=== PATIENT | male | born 1980 | race Caucasian/White ===

== ENCOUNTER → 2016-10-12 | Outpatient (REF) | payer OTHER ==
[~2016-10-12] MED LIST: CELE40TA PO; IBUP800T23 PO; NORCOTAB PO; SOMA350T PO; TIZA4CAP3 PO; TRAM50TA2 PO
[2016-10-12 11:48] LABS: MEAN CORPUSCULAR HEMOGLOBIN 28.4 pg (27.0-33.0); MEAN CORPUSCULAR HGB CONC 33.4 g/dl (32.0-36.5); MEAN CORPUSCULAR VOLUME 84.9 fl (80.0-96.0); RED CELL DISTRIBUTION WIDTH 15.2 % (11.5-14.5); WHITE BLOOD COUNT 7.4 K/mm3 (4.0-10.0)
[2016-10-12 11:52] LABS: ALBUMIN 4.3 GM/DL (3.2-5.2); ALBUMIN/GLOBULIN RATIO 1.34 (1.00-1.93); ALKALINE PHOSPHATASE 60 U/L (45-117); ALT/SGPT 36 U/L (12-78); ANION GAP 11 MEQ/L (8-16); AST/SGOT 19 U/L (15-37); BILIRUBIN,TOTAL 0.5 MG/DL (0.2-1.0); BLOOD UREA NITROGEN 19 MG/DL (7-18); CALCIUM LEVEL 9.2 MG/DL (8.5-10.1); CARBON DIOXIDE LEVEL 26 MEQ/L (21-32); CHLORIDE LEVEL 101 MEQ/L (98-107); CHOLESTEROL LEVEL 205 MG/DL (<200); CREATININE FOR GFR 0.84 MG/DL (0.70-1.30); GLOMERULAR FILTRATION RATE > 60.0 (>60); GLUCOSE, FASTING 88 MG/DL (70-105); POTASSIUM SERUM 4.1 MEQ/L (3.5-5.1); SODIUM LEVEL 138 MEQ/L (136-145); TOTAL PROTEIN 7.5 GM/DL (6.4-8.2); TRIGLYCERIDES LEVEL 359 MG/DL (<150)
== END ==
LOC: M SFHCPLAZ 09:03
PROVIDERS: ATTEND Nurse Practitioner Adult Health
DX: E78.00 Pure hypercholesterolemia, unspecified (principal)

== ENCOUNTER → 2016-10-29 | Outpatient (CLI) | payer OTHER ==
--- NOTE | 2016-10-29 12:56 | REP ---
Cervical spine series: Eight views. History: Cervical discectomy. Comparison radiographs May 30, 2015. Findings: The patient is status post ventral discectomy and fusion across this C5-6 disc level. Ventral perfusion plate and intervertebral disc spacers seen in position, unchanged. No subluxation or instability is seen. Oblique views demonstrate intact neural foramina bilaterally at each cervical level and normally aligned facets. AP and open mouth odontoid views show no additional abnormality. Impression: Status post ventral discectomy and fusion across the C5-6 disc level. Findings unchanged from comparison study May 30, 2015. Signed by Matt Etienne MD 10/29/2016 07:25 P
== END ==
LOC: M WUC 11:16
PROVIDERS: ATTEND Nurse Practitioner Adult Health
DX: Z98.890 Other specified postprocedural states (principal)

== ENCOUNTER → 2016-11-26 | Outpatient (REF) | payer OTHER | LOC: M LAB REF 16:15 | PROVIDERS: ATTEND Physician Assistant | DX: J02.9 Acute pharyngitis, unspecified (principal) ==

== ENCOUNTER 2016-12-06 10:26 | Emergency (ER) | payer OTHER ==
[~2016-12-06] VITALS: Ht 165.1 cm; Wt 88.5 kg
[2016-12-06] MEDS ORDERED: TRAM50TA2 PO (11:05)
--- NOTE | 2016-12-06 13:16 | REP ---
Right knee series: Five views. History: Bony tenderness. No injury. Findings: Five views of the right knee demonstrate normal bones, joints, and soft tissues. No fracture, subluxation or joint effusion is evident. Impression: Negative right knee radiographs. Signed by Matt Etienne MD 12/06/2016 07:16 P
[2016-12-06] MEDS ORDERED: MOBI7.5T10 PO (14:26)
[2016-12-06 15:10] VITALS: BP 143/90
== END 2016-12-06 15:14 | disposition home or self-care (01) ==
LOC: M ED 11:54
DX: S83.91XA Sprain of unspecified site of right knee, initial encounter (principal); X58.XXXA Exposure to other specified factors, initial encounter; Y92.89 Other specified places as the place of occurrence of the external cause; Y93.89 Activity, other specified; Y99.8 Other external cause status; F41.9 Anxiety disorder, unspecified; Z87.891 Personal history of nicotine dependence; Z88.8 Allergy status to other drugs, medicaments and biological substances; Z79.899 Other long term (current) drug therapy

== ENCOUNTER → 2017-06-21 | Outpatient (REF) | payer OTHER ==
[~2017-06-21] MED LIST changes: +IBUP1TAB7 PO; -IBUP800T23 PO; +MOBI4TAB PO
[2017-06-21 13:58] LABS: CHOLESTEROL LEVEL 224 MG/DL (<200); TRIGLYCERIDES LEVEL 410 MG/DL (<150)
[2017-06-23 00:07] LABS: Lyme Disease IgG/IgM Antibodie <0.91 ISR (0.00-0.90); Lyme Disease IgM Ab Quantitati <0.80 index (0.00-0.79)
== END ==
LOC: M SFHCPLAZ 11:44
PROVIDERS: ATTEND Internal Medicine
DX: E78.00 Pure hypercholesterolemia, unspecified (principal); M25.561 Pain in right knee; M25.562 Pain in left knee

== ENCOUNTER → 2017-09-06 | Outpatient (CLI) | payer OTHER ==
--- NOTE | 2017-09-06 20:12 | REP ---
MRI LUMBAR SPINE WITHOUT CONTRAST: 09/06/2017. Clinical history: Back pain, lumbar disc degeneration, pain radiating down into the knees. Technique: Sagittal T1, T2, STIR images with axial T1 and T2 sequences provided. Findings. The normal lumbar lordosis is reduced. Vertebral body heights and marrow signal grossly intact. There is loss of disc space height and water signal to a mild degree at L4-5, greater L5-S1. Disc levels above maintain height and water signal through T12-L1. Conus terminates at T12-L1. T11-12 and T12-L1 show no disc space narrowing, herniation, spinal or foraminal stenosis. At L1-2, there is minimal right paracentral disc bulge without central canal stenosis. The foramina are adequate. At L2-3, there is no disc bulge herniation and no spinal or foraminal stenosis. At L3-L4, there is a mild broad-based disc bulge flattening ventral thecal sac. There is ligamentum flavum and mild facet hypertrophy. AP canal diameter only minimally decreased at 9.3 mm. No nerve root compression in the foramen or central canal. At L4-5, mild broad-based disc bulge flattening ventral thecal sac. Ligamentum flavum and facet hypertrophy. Mild central canal stenosis. The AP canal diameter almost 9 mm. No nerve root compression in the central canal. The foramina show loss of perineural fat without definite nerve root compression. At L5-S1, mild broad-based disc bulge abutting the left and right S1 nerve roots in the central canal. Cross-sectional area of the central canal mildly diminished. The foramina show only mild loss of perineural fat and no nerve root compression within. Impression: Multilevel mild degenerative disc change with some disc bulges at L3-4 through L5-S1 without central canal significant stenosis. There is ligamentum and facet hypertrophy and AP canal diameters of 9 mm at the L3-4 and L4-5 noted without foraminal encroachment or nerve root compression at any level. No compression fractures, destructive lesions or other acute finding. Signed by Josh Chacon MD 09/07/2017 09:11 A
== END ==
LOC: M RAD 16:55
PROVIDERS: ATTEND Physician Assistant
DX: M51.36 Other intervertebral disc degeneration, lumbar region (principal)

== ENCOUNTER 2018-01-31 07:49 | Day surgery (SDC) | payer OTHER ==
[2018-01-31] MEDS ORDERED: PROPOFOL 200 MG/20 ML VIAL As Ordered (07:52)
[2018-01-31] MEDS ORDERED: LIDOCAINE 2% INJ 100 MG/5 ML SDV (FOR ANES.) As Ordered (07:52)
[2018-01-31] MEDS: LR 1,000 ML IV (08:00)
== END 2018-01-31 10:06 | disposition home or self-care (01) ==
LOC: M OPP 07:49
DX: K62.5 Hemorrhage of anus and rectum (principal); K64.8 Other hemorrhoids; R19.7 Diarrhea, unspecified; E78.5 Hyperlipidemia, unspecified; M54.2 Cervicalgia; M54.89 Other dorsalgia; E66.9 Obesity, unspecified; F32.9 Major depressive disorder, single episode, unspecified; F41.9 Anxiety disorder, unspecified; R51 Headache; G47.30 Sleep apnea, unspecified; J45.909 Unspecified asthma, uncomplicated; Z88.8 Allergy status to other drugs, medicaments and biological substances; Z79.899 Other long term (current) drug therapy
CPT/HCPCS: 45378

== ENCOUNTER 2018-02-20 13:05 | Emergency (ER) | payer OTHER ==
[2018-02-20] MEDS: ACYCLOVIR 1,000 MG in D5W 250 ML IV (16:06)
[2018-02-20] MEDS: predniSONE 20 MG TAB PO (16:07)
[2018-02-20] MEDS: CIPRODEX OTIC SUSP 7.5ML AD (16:07)
== END 2018-02-20 17:28 | disposition home or self-care (01) ==
LOC: M ED 13:05
DX: B00.1 Herpesviral vesicular dermatitis (principal); F41.9 Anxiety disorder, unspecified; G47.33 Obstructive sleep apnea (adult) (pediatric); Z88.8 Allergy status to other drugs, medicaments and biological substances; Z79.899 Other long term (current) drug therapy
CPT/HCPCS: J0133

== ENCOUNTER → 2018-03-14 | Outpatient (REF) | payer OTHER ==
[2018-03-14 13:24] LABS: HEMATOCRIT 45.5 % (42.0-52.0); HEMOGLOBIN 16.2 g/dl (13.5-17.5); MEAN CORPUSCULAR HEMOGLOBIN 29.8 pg (27.0-33.0); MEAN CORPUSCULAR HGB CONC 35.6 g/dl (32.0-36.5); MEAN CORPUSCULAR VOLUME 83.6 fl (80.0-96.0); PLATELET COUNT, AUTOMATED 221 10^3/uL (150-450); RED BLOOD COUNT 5.44 10^6/uL (4.30-6.10); RED CELL DISTRIBUTION WIDTH 13.8 % (11.5-14.5); WHITE BLOOD COUNT 6.1 10^3/uL (4.0-10.0)
[2018-03-14 14:26] LABS: ALBUMIN 4.3 GM/DL (3.2-5.2); ALBUMIN/GLOBULIN RATIO 1.23 (1.00-1.93); ALKALINE PHOSPHATASE 57 U/L (45-117); ALT/SGPT 56 U/L (12-78); ANION GAP 11 MEQ/L (8-16); AST/SGOT 27 U/L (7-37); BILIRUBIN,TOTAL 0.6 MG/DL (0.2-1.0); BLOOD UREA NITROGEN 23 MG/DL (7-18); CALCIUM LEVEL 9.3 MG/DL (8.5-10.1); CARBON DIOXIDE LEVEL 25 MEQ/L (21-32); CHLORIDE LEVEL 103 MEQ/L (98-107); CHOLESTEROL LEVEL 277 MG/DL (<200); CHOLESTEROL RISK RATIO 6.441 (<5); CREATININE FOR GFR 0.92 MG/DL (0.70-1.30); GLOMERULAR FILTRATION RATE > 60.0 (>60); GLUCOSE, FASTING 95 MG/DL (70-100); HDL CHOLESTEROL 43 MG/DL (>40); NON-HDL-C 234 MG/DL; POTASSIUM SERUM 4.4 MEQ/L (3.5-5.1); SODIUM LEVEL 139 MEQ/L (136-145); TOTAL PROTEIN 7.8 GM/DL (6.4-8.2); TRIGLYCERIDES LEVEL 453 MG/DL (<150)
== END ==
LOC: M SFHCPLAZ 10:57
DX: G47.33 Obstructive sleep apnea (adult) (pediatric) (principal); E78.00 Pure hypercholesterolemia, unspecified

== ENCOUNTER 2019-08-10 11:25 | Emergency (ER) | payer OTHER ==
[~2019-08-10] VITALS: Ht 167.6 cm; Wt 88.6 kg
[~2019-08-10 11:25] MED LIST changes: +CIPRODEX AD; +HYDR-3715 PO; -NORCOTAB PO; +PRED20TA PO; +TIZA4CAP; +TIZA4CAP PO; -TIZA4CAP3 PO; +VALA1TAB2 PO
[2019-08-10] MEDS ORDERED: ABRE10CR TOP (13:30)
[2019-08-10] MEDS ORDERED: ACYCLOVIR 1,000 MG in D5W 250 ML IV ONE (15:15)
[2019-08-10 15:24] LABS: BASO # 0.1 10^3/uL (0.0-0.2); BASO % 0.8 % (0.0-1.0); EOS # 0.1 10^3/uL (0.0-0.5); EOS % 1.3 % (0.0-3.0); HEMATOCRIT 51.4 % (42.0-52.0); HEMOGLOBIN 17.3 g/dl (13.5-17.5); LYMPH # 3.3 10^3/uL (1.5-5.0); LYMPH % 41.4 % (24.0-44.0); MEAN CORPUSCULAR HGB CONC 33.7 g/dl (32.0-36.5); MEAN CORPUSCULAR VOLUME 86.2 fl (80.0-96.0); MONO # 0.9 10^3/uL (0.0-0.8); MONO % 10.7 % (0.0-5.0); NEUTROPHILS # 3.6 10^3/uL (1.5-8.5); NEUTROPHILS % 45.3 % (36.0-66.0); PLATELET COUNT, AUTOMATED 230 10^3/uL (150-450); RED BLOOD COUNT 5.96 10^6/uL (4.30-6.10)
[2019-08-10 15:48] LABS: BLOOD UREA NITROGEN 16 MG/DL (7-18); CALCIUM LEVEL 9.4 MG/DL (8.5-10.1); CARBON DIOXIDE LEVEL 29 MEQ/L (21-32); CHLORIDE LEVEL 104 MEQ/L (98-107); GLOMERULAR FILTRATION RATE > 60.0 (>60); GLUCOSE, FASTING 93 MG/DL (70-100); POTASSIUM SERUM 4.2 MEQ/L (3.5-5.1); SODIUM LEVEL 140 MEQ/L (136-145)
[2019-08-10 16:01] VITALS: BP 150/90
[2019-08-10] MEDS ORDERED: KEFL500C17 PO (17:14)
== END 2019-08-10 17:22 | disposition home or self-care (01) ==
LOC: M ED 11:25
DX: B02.8 Zoster with other complications (principal); F41.9 Anxiety disorder, unspecified; E78.00 Pure hypercholesterolemia, unspecified; Z79.899 Other long term (current) drug therapy; Z88.8 Allergy status to other drugs, medicaments and biological substances
CPT/HCPCS: 80048; 85025; 96360; 99284; J0133

== ENCOUNTER 2019-09-09 18:00 | Emergency (ER) | payer OTHER ==
[~2019-09-09] VITALS: Ht 167.6 cm; Wt 88.6 kg
[~2019-09-09 18:00] MED LIST changes: +ABRE10CR TOP; +KEFL500C17 PO; -VALA1TAB2 PO; +VALA1TAB64 PO
[2019-09-09] MEDS ORDERED: ACYCLOVIR 500 MG in D5W MINI-BAG PLUS 100 ML IV ONE (20:00)
[2019-09-09] MEDS ORDERED: ACYCLOVIR 1,000 MG in D5W 250 ML IV ONE (20:00)
[2019-09-09] MEDS ORDERED: VALT1TAB PO (20:44)
[2019-09-09 23:13] VITALS: BP 131/81
== END 2019-09-09 23:15 | disposition home or self-care (01) ==
LOC: M ED 18:00
DX: B00.1 Herpesviral vesicular dermatitis (principal); L53.9 Erythematous condition, unspecified; J45.909 Unspecified asthma, uncomplicated; Z79.899 Other long term (current) drug therapy; Z88.8 Allergy status to other drugs, medicaments and biological substances
CPT/HCPCS: 96365; 99284; J0133

== ENCOUNTER 2020-02-23 02:42 | Emergency (ER) | payer OTHER ==
[~2020-02-23] VITALS: Ht 165.1 cm; Wt 90.5 kg
[~2020-02-23 02:42] MED LIST changes: +VALA1TAB5 PO; -VALA1TAB64 PO; +VALT1TAB PO
[2020-02-23] MEDS ORDERED: ACET-683 PO (02:53)
[2020-02-23] MEDS ORDERED: FAMO40TA3 PO (02:54)
--- NOTE | 2020-02-23 04:01 | REPVR ---
PROCEDURE INFORMATION: Exam: CT Lumbar Spine Without Contrast Exam date and time: 02/23/2020 3:29 AM Age: 39 years old Clinical indication: Pain; Sciatica; Right; Additional info: R sciatic pain TECHNIQUE: Imaging protocol: Computed tomography images of the lumbar spine without contrast. Radiation optimization: All CT scans at this facility use at least one of these dose optimization techniques: automated exposure control; mA and/or kV adjustment per patient size (includes targeted exams where dose is matched to clinical indication); or iterative reconstruction. COMPARISON: MRI-Spine, L.S. without con 09/06/2017 5:33 PM FINDINGS: Vertebrae: Unilateral sacralization of L5 by articulation on the right. L1-L2: The disc is adequately well maintained with no significant facet arthropathy and no spinal or foraminal stenosis. L2-L3: The disc is adequately well maintained with early degenerative change of the left facet and a small separate ossification at the posterior aspect of the facet joint with no spinal or foraminal stenosis. L3-L4: Minimal broad-based posterior protrusion of the disc with loss of posterior concavity. There is minimal facet arthropathy with no spinal or foraminal stenosis. L4-L5: Mild interspace narrowing with minimal diffuse bulge of the disc. There are right posterolateral osteophytes with localized right posterolateral disc protrusion. There is minimal facet arthropathy. The spinal canal is of low normal size with borderline right neural foraminal stenosis. Some effect on the right L4 root lateral to the neural foramen is not excluded and is similar to the prior MR of 09/06/2017. L5-S1: Mild interspace narrowing with unilateral sacralization by articulation on the right. No significant bulge or protrusion. There is mild facet arthropathy. There are minimal right posterolateral osteophytes. No significant spinal or foraminal stenosis. Other bones/joints: Hypoplastic 12th ribs are noted. Soft tissues: Unremarkable. IMPRESSION: 1. Minimal diffuse bulge at L4-L5 with right posterolateral disc protrusion and osteophytes. There is borderline right neural foraminal stenosis. Some effect on the right L4 root lateral to the neural foramen is not excluded and is similar to the MR of 09/06/2017. 2. Unilateral sacralization of L5 by articulation on the right with minimal right posterolateral osteophytes. No significant spinal or foraminal stenosis. 3. Otherwise negative CT lumbar spine. Electronically signed by: Joe Andino On 02/23/2020 04:00:44 AM
[2020-02-23] MEDS: KETOROLAC 60MG 2ML VIAL IM ONE (05:31)
[2020-02-23 06:55] VITALS: BP 152/94
[2020-02-23] MEDS: traMADol 50 MG TAB PO ONE (07:00)
[2020-02-23] MEDS: traMADol 50 MG TAB (BULK 4 TAB ED) PO ONE (07:01)
--- NOTE | 2020-02-23 13:38 | REP ---
PELVIS: AP view of the pelvis is performed. There is no acute fracture, dislocation, or intrinsic bone disease. The hip joints appear normal. There are multiple small metallic coils overlying the pelvis. IMPRESSION: No abnormality is detected. Electronically Signed by David Villanueva MD 02/23/2020 09:42 P
[2020-02-23] MEDS ORDERED: LIDO5DIS41 TOP (15:00)
[2020-02-23] MEDS ORDERED: PRED20TA PO (15:00)
--- NOTE | 2020-02-25 12:17 | ED PDOC ---
Post-Departure Follow-Up ct ls spine faxed to [facility] and sg for fu Shady Burleson MD Feb 25, 2020 12:17
== END 2020-02-23 07:07 | disposition home or self-care (01) ==
LOC: M ED 02:42
DX: M51.36 Other intervertebral disc degeneration, lumbar region (principal); M79.2 Neuralgia and neuritis, unspecified; G47.30 Sleep apnea, unspecified; J45.909 Unspecified asthma, uncomplicated; F41.9 Anxiety disorder, unspecified; Z88.8 Allergy status to other drugs, medicaments and biological substances; Z79.899 Other long term (current) drug therapy
CPT/HCPCS: 72131; 72170; 99283; J1885

== ENCOUNTER 2020-02-23 11:19 | Emergency (ER) | payer OTHER ==
[~2020-02-23] VITALS: Ht 165.1 cm; Wt 90.0 kg
[~2020-02-23 11:19] MED LIST changes: +ACET-683 PO; +CIPR7.5D5 AD; -CIPRODEX AD; +FAMO40TA3 PO
[2020-02-23] MEDS ORDERED: LIDOCAINE 5% (LIDODERM) PATCH TD ONE (13:30)
[2020-02-23] MEDS ORDERED: methylPREDNISolone 125MG 2ML VIAL IV ONE (13:30)
[2020-02-23 14:22] LABS: BASO % 0.3 % (0.0-1.0); EOS % 0.2 % (0.0-3.0); HEMATOCRIT 44.4 % (42.0-52.0); HEMOGLOBIN 15.4 g/dl (13.5-17.5); LYMPH # 1.8 10^3/uL (1.5-5.0); LYMPH % 19.4 % (24.0-44.0); MEAN CORPUSCULAR HEMOGLOBIN 29.3 pg (27.0-33.0); MEAN CORPUSCULAR HGB CONC 34.7 g/dl (32.0-36.5); MEAN CORPUSCULAR VOLUME 84.4 fl (80.0-96.0); MONO # 0.6 10^3/uL (0.0-0.8); MONO % 6.5 % (0.0-5.0); NEUTROPHILS # 6.6 10^3/uL (1.5-8.5); NEUTROPHILS % 73.4 % (36.0-66.0); PLATELET COUNT, AUTOMATED 214 10^3/uL (150-450); RED BLOOD COUNT 5.26 10^6/uL (4.30-6.10)
[2020-02-23 14:47] VITALS: BP 129/80
[2020-02-23] MEDS ORDERED: LIDO5DIS41 TOP (15:00)
[2020-02-23] MEDS ORDERED: PRED20TA PO (15:00)
[2020-02-23] MEDS ORDERED: NORCO, ANEXSIA 5/325MG TABLET (HYDROcodone/ACETAMINOPHEN) PO ONE (15:15)
[2020-02-23] MEDS ORDERED: **NOTE PATIENT COMMENT** MISC XX SCH (21:00)
== END 2020-02-23 15:28 | disposition home or self-care (01) ==
LOC: M ED 11:19
DX: M51.27 Other intervertebral disc displacement, lumbosacral region (principal); M54.17 Radiculopathy, lumbosacral region; J45.909 Unspecified asthma, uncomplicated; F41.9 Anxiety disorder, unspecified; K21.9 Gastro-esophageal reflux disease without esophagitis; Z79.899 Other long term (current) drug therapy; Z88.8 Allergy status to other drugs, medicaments and biological substances
CPT/HCPCS: 80047; 85025; 96374; 99284; J2930

== ENCOUNTER → 2020-02-29 | Outpatient (CLI) | payer OTHER ==
[~2020-02-29] MED LIST changes: -CIPR7.5D5 AD; +CIPRODEX AD; +LIDO5DIS41 TOP; +ULTR50TA8 PO
--- NOTE | 2020-02-29 09:25 | REPVR ---
PROCEDURE INFORMATION: Exam: MR Lumbar Spine Without Contrast. Exam date and time: 02/29/2020 7:47 AM Age: 39 years old Clinical indication: Low back pain; Additional info: Disc degeneration, R/O hnp and stenosis ? change TECHNIQUE: Imaging protocol: Multiplanar magnetic resonance images of the lumbar spine without intravenous contrast. COMPARISON: MRI-Spine, L.S. without con 09/06/2017 5:33 PM FINDINGS: Vertebrae: No acute fractures seen in the lumbar spine. The lumbar spine alignment is normal. Spinal cord: Normal signal in the distal thoracic cord and conus medullaris. No cord compression. L1-L2: No significant disc disease. No significant spinal canal stenosis. No neural foraminal stenosis. Tiny bilateral posterior facet joint effusions are present. L2-L3: No significant disc disease. No significant spinal canal stenosis. No neural foraminal stenosis. Tiny bilateral posterior facet joint effusions are present. L3-L4: Minimal posterior disc bulging. No significant spinal canal stenosis. No neural foraminal stenosis. Tiny bilateral posterior facet joint effusions are present. L4-L5: Mild chronic degenerative disc desiccation with partial loss of normal T2 and STIR signal in the disc. Right-sided far lateral disc bulging is present which impinges slightly on the exited right L4 nerve root. This is seen on frames 6 through 10 of series 601. No significant spinal canal stenosis. L5-S1: Chronic degenerative disc desiccation is present. No significant spinal canal stenosis. No neural foraminal stenosis. Soft tissues: Unremarkable prevertebral and posterior paraspinal soft tissues. IMPRESSION: 1. Multiple levels of chronic degenerative discovertebral and posterior facet joint disease are seen at L1-S1, as detailed above. 2. Right-sided far lateral disc bulging is present at L4/L5, which impinges slightly on the exited right L4 nerve root in the right side far lateral neural foramen region. This is seen on frames 6 through 10 of series 601. Overall, no significant interval change since the previous MRI lumbar spine exam from 09/06/2017. Electronically signed by: Tony Jarvis On 02/29/2020 09:25:31 AM
== END ==
LOC: M RAD 06:39
PROVIDERS: ATTEND Physician Assistant
DX: M51.36 Other intervertebral disc degeneration, lumbar region (principal); M51.26 Other intervertebral disc displacement, lumbar region

== ENCOUNTER 2020-03-02 11:16 | Emergency (ER) | payer OTHER ==
[~2020-03-02] VITALS: Ht 165.1 cm; Wt 90.4 kg
[~2020-03-02 11:16] MED LIST changes: -ULTR50TA8 PO
[2020-03-02] MEDS ORDERED: ULTR50TA8 PO (12:28)
[2020-03-02] MEDS ORDERED: PRED20TA PO (12:28)
[2020-03-02] MEDS ORDERED: methylPREDNISolone INJ 125 MG/2 ML VIAL (J2930) IM ONE (12:30)
[2020-03-02 12:34] VITALS: BP 139/88
== END 2020-03-02 13:04 | disposition home or self-care (01) ==
LOC: M ED 11:16
DX: M51.36 Other intervertebral disc degeneration, lumbar region (principal); Z88.8 Allergy status to other drugs, medicaments and biological substances
CPT/HCPCS: 96372; 99283; J2930

== ENCOUNTER 2020-11-07 15:45 | Emergency (ER) | payer OTHER ==
[~2020-11-07] VITALS: Ht 162.6 cm; Wt 92.3 kg
[~2020-11-07 15:45] MED LIST changes: +CIPR7.5D5 AD; -CIPRODEX AD; +ULTR50TA8 PO
--- OUTSIDE RECORDS SUMMARY | 2020-11-07 15:53 | CCD | Continuity of Care Document ---
Author Author [facility] [place] Organization Unknown Address [address] [place] [address] Phone [phone] Care Team Providers Care Talent Development Analyst Name Role Phone Seth Smith MD AUTM [phone] Ramiro Gonzalez Publi AUTM [phone] Problems Active Problems Provider Date Viral infection by site Aylin Booker Onset: Posterior rhinorrhea Jb Mckeon PKiersten Onset: 04/26 Acute sinusitis Jb Mckeon PKiersten Onset: 2010 Social History Type Date Description Comments Sex Unknown Tobacco Use Start: Unknown End: Unknown Former Cigarette Smo ker socially ETOH Use Drinks Alcoholic Beverages Occas ionally Tobacco Use Start: Unknown End: Unknown Patient is a former smoker Smoking Status Reviewed: 08/25/20 Patient is a former smoker Allergies, Adverse Reactions, Alerts Active Allergies Reaction Severity Comments Date Santino-Dur AMS 03/07/2011 Medications Active Medications SIG Qnty Indications Ordering Provide r Date Oseltamivir Phosphate 75mg Capsule s take one tab by mouth twice a day for 5 days 10caps J09.x9 Darin Jeong JR., M.D. 08/25/2020 Celexa Unknown Ibuprofen 800mg Tablets as ne eded Unknown Famotidine Unknown Immunizations Description No Information Available Vital Signs Date Vital Result Comment 08/25/2020 10:12am BP Systolic 136 mmHg BP Diastolic 96 mmHg Heart Rate 73 /min Respiratory Rate 16 /min O2 % BldC Oximetry 98 % Body Temperature 98.5 F Weight 197.00 lb Height 65 inches 5'5" BMI (Body Mass Index) 32.8 kg/m2 Pain Level 3 02/22/2020 9:00am BP Systolic 120 mmHg BP Diastolic 82 mmHg Heart Rate 67 /min O2 % BldC Oximetry 98 % Body Temperature 98.4 F Weight 198.38 lb Height 65 inches 5'5" BMI (Body Mass Index) 33.0 kg/m2 Pain Level 7 Results Description No Information Available Procedures Description No Information Available Medical Devices Description No Information Available Encounters Type Date Location Provider Dx Diagnosis Office Visit 08/25/2020 9:00a Main Office ABHINAV Mendez J06 .9 Acute upper respiratory infection, unspecified J09.x9 Flu due to ident novel influ abilio A virus w oth manifest Z20.828 Contact w and exposure to ot h viral communicable diseases Assessments Date Code Description Provider 08/25/2020 J06.9 Acute upper respiratory infectio n, unspecified ABHINAV Mendez 08/25/2020 J09.x9 Influenza due to bethanie ntified novel influenza A virus with other manifestations ABHINAV Mendez 08/25/2020 Z20.828 Contact with and (saldana spected) exposure to other viral communicable diseases ABHINAV Mendez Plan of Treatment No Information Available Functional Status Description No Information Available Mental Status Description No Information Available Referrals Description No Information Available
--- OUTSIDE RECORDS SUMMARY | 2020-11-07 15:53 | CCD | Continuity of Care Document ---
Author Author [facility]any [facility] [place] Organization Unknown Address [address] [place] [address] Phone [phone] Care Team Providers Care Core Manager Name Role Phone Seth Smith MD AUTM [phone] Ramiro Gonzalez Publi AUTM [phone] Problems Active Problems Provider Date Viral infection [...] is a former smoker Smoking Status Reviewed: 10/01/20 Patient is a former smoker Allergies, Adverse Reactions, Alerts Active Allergies Reaction Severity Comments Date Santino-Dur AMS 03/07/2011 Medications Active Medications SIG Qnty Indications Ordering Provide r Date Celexa Unknown Ibuprofen 800mg Tablets as ne eded Unknown Famotidine Unknown History Medications Oseltamivir Phosphate 75mg Capsule s take one tab by mouth twice a day for 5 days 10caps J09.x9 Darin Jeong JR., M.D. 08/25/2020 - 09/26/2020 Immunizations Description No Information Available Vital Signs Date Vital Result Comment 10/01/2020 8:17am BP Systolic 132 mmHg BP Diastolic 92 mmHg Heart Rate 73 /min Respiratory Rate 16 /min O2 % BldC Oximetry 98 % Body Temperature 98.0 F Weight 195.00 lb Height 65 inches 5'5" BMI (Body Mass Index) 32.4 kg/m2 Pain Level 2 08/25/2020 10:12am BP Systolic 136 mmHg BP Diastolic 96 mmHg Heart Rate 73 /min Respiratory Rate 16 /min O2 % BldC Oximetry 98 % Body Temperature 98.5 F Weight 197.00 lb Height 65 inches 5'5" BMI (Body Mass Index) 32.8 kg/m2 Pain Level 3 Results Description No Information Available Procedures Description No Information Available Medical Devices Description No Information Available Encounters Type Date Location Provider Dx Diagnosis Office Visit 10/01/2020 8:10a Main Office ABHINAV Mendez J06 .9 Acute upper respiratory infection, unspecified Z20.828 Contact w and exposure to ot h viral communicable diseases Office Visit 08/25/2020 9:00a Main Office ABHINAV Mendez J06 .9 Acute upper respiratory infection, unspecified J09.x9 Flu due to ident novel influ abilio A virus w oth manifest Z20.828 Contact w and exposure to ot h viral communicable diseases Assessments Date Code Description Provider 10/01/2020 J06.9 Acute upper respiratory infectio n, unspecified ABHINAV Mendez 10/01/2020 Z20.828 Contact with and (saldana spected) exposure to other viral communicable diseases ABHINAV Mendez 08/25/2020 J06.9 Acute upper respiratory infectio n, [...]
--- OUTSIDE RECORDS SUMMARY | 2020-11-07 15:53 | CCD | Continuity of Care Document ---
Author Author Hany [facility]AMPION [place] Organization Unknown Address [address] [place] [address] Phone [phone] Care Team Providers Care Salesperson [employer] Name Role Phone Seth Smith MD AUTM [phone] Ramiro Gonzalez Publi AUTM [phone] Problems Active Problems Provider Date Viral infection [...]
--- OUTSIDE RECORDS SUMMARY | 2020-11-07 15:53 | CCD ---
Author Author [facility] Organization [facility] Address Unknown Phone Unavailable Care Team Providers Care Obstetrical Anesthesiologist Name Role Phone Seth Smith Unavailable PROBLEMS Type Condition ICD9-CM Code [id number] Code Onset Dates Condition S tatus SNOMED Code Notes Problem Dysthymia F34.1 Active 77471286 He will dai nue citalopram therapy. Problem Fatigue R53.83 Active 46521787 TSH was normal in November 2015 and a CBC was normal in February 2018. Problem Chest pain, unspecified R07.9 Active 65175984 Chest discomforts are vague and indeterminate in origin. He had a negative stress test in November 2015. I do not believe these are anginal in character. Problem Low back pain M54.5 Active 280207943 He has h ad an evaluation for his back pain which included electrodiagnostics and a neurosurgical evaluation, as well as orthopedic evaluation. MRI of his lumbosacral spine in August 2017 demonstrated degenerative disc and some neuroforaminal disease with no spinal stenosis. He has been to pain clinic and had one lumbar epidural steroid shot so far. He anticipates a series of shots. So far he has not seen much benefit. Problem Mixed hyperlipidemia E78.2 Active 956601531 H is lipids are remarkable for a persistently elevated triglycerides and a significant cholesterol elevation, as of February 2018. He should go back on fish oil therapy and consider starting a statin. We will refer him to a management technician for dietary counseling as of February 2018. Problem H/O cervical discectomy Z98.890 Active 84729402 9 Problem Obstructive sleep apnea (adult) (pediatric) G47.33 Active 64527948 He is on CPAP at +7 cm of water since 2016. Problem Pain in left knee M25.562 Active [id number] 2 Managed by orthopedics. Serologic testing was negative in 2017. Problem Pain in right knee M25.561 Active [id number] 04 Managed by orthopedics. Serologic testing was negative in 2017. ALLERGIES Allergen (clinical drug ingredient) Drug/Non Drug Allergy do cumented on EMR Reaction Allergy Type Onset Date Status theophylline Theophylline([facility] Code:[address]-03) mental stat us change Drug Allergy Active ENCOUNTERS from 1979 to 2020-10-20 Encounter Location Date Provider Diagnosis [id number] [place] [address] Sep, Seth Sarah Mixed hyperlipidemia E78.2 IMMUNIZATIONS No Information SOCIAL HISTORY Tobacco Use: Social History Observation Description Date Details (start date - stop date) Never Smoker Sex Assigned At : Social History Observation Description Sex Assigned At Unknown Audit Question Answer Notes Total Score: 2 Interpretation: Alcohol Education Shinto: Question Answer Notes Shinto 21 Yazdanism Sexual Hx: Question Answer Notes Had sex in the last 12 months (vaginal, oral, or anal)? No Have you ever had an STD? No Drug and Alcohol Question Answer Notes Total Score: 0 Interpretation: No problems reported Alcohol Screening: Question Answer Notes Did you have a drink containing alcohol in the past year? No Points 0 Interpretation Negative BMI Care Goal Follow-Up Question Answer Notes Above Normal BMI Follow-Up Dietary management educatio n, guidance, and counseling Tobacco Use: Question Answer Notes Are you a: never smoker REASON FOR REFERRAL No Information VITAL SIGNS No information MEDICATIONS Medication SIG (Take, Route, Frequency, Duration) Notes Start Da te End Date Status Tramadol HCl 50 MG 1 tablet as needed neck pain Orally 15221965 every 8 hrs for 30 day(s) Sep, Not-Taking Famotidine 40 MG 1 tablet at bedtime as needed Orally Once a day for 90 Active [place]-3 1400 MG 2 capsules Orally Once a day for _ May, Active Celexa 40 MG 1 tab(s) Orally Once a day for 90 Active PROCEDURES No Information RESULTS No Results REASON FOR VISIT lab orders MEDICAL (GENERAL) HISTORY Type Description Date Medical History anterior cervical discectomy C5-6, anterior fusion C5-6, anterior instrumentation C5-6, for herniated disc 04/18/2015. Dr. Jorje Lynne, 04/18/2015 Medical History 12/23/2015 stress test, [place] heart felt to be low risk stress test Medical History obstructive sleep apnea, marianna aturations were cyclic dropped to the low 70s, on CPAP Medical History anxiety follows with Dr. Skelton Medical History hypercholesterolemia Medical History asthma as a child Medical History donates blood to the Carolann [facility] on a regular basis B negative Surgical History Appendectomy 1997 Surgical History Inguinal hernia repair x2 Surgical History Umbilical hernia repair Surgical History Carpal tunnel release, right 10/2014 Surgical History Neck Surgery 03/2015 Surgical History Colonoscopy 01/2018 Hospitalization History Surgery related Goals Section No Information Health Concerns No Information MEDICAL EQUIPMENT No Information MENTAL STATUS No Information FUNCTIONAL STATUS No Information ASSESSMENTS Encounter Date Diagnosis Assessment Notes Treatment Notes Treatm ent Clinical Notes Sep, Mixed hyperlipidemia (ICD-10 - E78.2) Hi s lipids are remarkable for a persistently elevated triglycerides and a significant cholesterol elevation, as of February 2018. He should go back on fish oil therapy and consider starting a statin. We will refer him to a management technician for dietary counseling as of February 2018. PLAN OF TREATMENT Medication Medication Name Sig Start Date Stop Date Celexa 40 MG 1 tab(s) Orally Once a day for 90 Famotidine 40 MG 1 tablet at bedtime as needed Orally Once a day for 90 Treatment Notes Test Name Order Date Comprehensive Metabolic Profile (CMP) 2020-10-20 LIPID PANEL (CARDIAC RISK) 2020-10-20 Next Appt Details Provider Name:Seth Smith, 2020-11-10 11 :30:00 AM, [address] [place], [address], Insurance Providers Payer Name Payer Address Payer Phone Insured Name Patient Relati onship to Insured Coverage Start Date Coverage End Date [facility] [place] [address] [facility] [phone] ARMEN BENTLEY self
--- OUTSIDE RECORDS SUMMARY | 2020-11-07 15:53 | CCD | Continuity of Care Document ---
Author Author Hany [facility]AMPION [place] Organization Unknown Address [address] [place] [address] Phone [phone] Care Team Providers Care Dye Range Operator Name Role Phone Seth Smith MD AUTM [phone] Ramiro Gonzalez Publi AUTM [phone] Problems Active Problems Provider Date Viral infection [...]
--- OUTSIDE RECORDS SUMMARY | 2020-11-07 15:54 | CCD ---
Author Author [facility] Organization [facility] Address Unknown Phone Unavailable Care Team Providers Care Preschool Teacher Aide Name Role Phone Maris Rush Unavailable Unavailable Maris Rush Unavailable Unavailable Maris Rush Unavailable Unavailable Maris Rush Unavailable Unavailable Maris Rush Unavailable Unavailable Maris Rush Unavailable Unavailable Maris Rush Unavailable Unavailable Maris Rush Unavailable Unavailable Maris Rush Unavailable Unavailable Maris Rush Unavailable Unavailable Maris Rush Unavailable Unavailable Maris Rush Unavailable Unavailable Maris Rush Unavailable Unavailable Maris Rush Unavailable Unavailable Maris Rush Unavailable Unavailable Maris Rush Unavailable Unavailable Maris Rush Unavailable Unavailable Maris Rush Unavailable Unavailable Maris Rush Unavailable Unavailable Maris Rush Unavailable Unavailable Rush, M Matt PA Unavailable Unavailable Rush, M Matt PA Unavailable Unavailable Rush, M Matt PA Unavailable Unavailable Rush, M Matt PA Unavailable Unavailable Rush, M Matt PA Unavailable Unavailable Rush, M Matt PA Unavailable Unavailable Rush, M Matt PA Unavailable Unavailable Rush, M Matt PA Unavailable Unavailable Rush, M Matt PA Unavailable Unavailable Rush, M Matt PA Unavailable Unavailable Rush, M Matt PA Unavailable Unavailable Rush, M Matt PA Unavailable Unavailable Rsuh, M Matt PA Unavailable Unavailable Rush, M Matt PA Unavailable Unavailable Rush, M Matt PA Unavailable Unavailable Rush, M Matt PA Unavailable Unavailable Rush, M Matt PA Unavailable Unavailable Rush, M Matt PA Unavailable Unavailable Rush, M Matt PA Unavailable Unavailable Rush, M Matt PA Unavailable Unavailable Rush, M Matt PA Unavailable Unavailable Rush, M Matt PA Unavailable Unavailable Rush, M Matt PA Unavailable Unavailable Rush, M Matt PA Unavailable Unavailable Rush, M Matt PA Unavailable Unavailable Rush, M Matt PA Unavailable Unavailable Rush, M Matt PA Unavailable Unavailable DRAZEK, I ELENA PA Unavailable Unavailable DRAZEK, I ELENA PA Unavailable Unavailable DRAZEK, I ELENA PA Unavailable Unavailable DRAZEK, I ELENA PA Unavailable Unavailable DRAZEK, I ELENA PA Unavailable Unavailable DRAZEK, I ELENA PA Unavailable Unavailable DRAZEK, I ELENA PA Unavailable Unavailable DRAZEK, I ELENA PA Unavailable Unavailable DRAZEK, I ELENA PA Unavailable Unavailable DRAZEK, I ELENA PA Unavailable Unavailable DRAZEK, I ELENA PA Unavailable Unavailable DRAZEK, I ELENA PA Unavailable Unavailable DRAZEK, I ELENA PA Unavailable Unavailable DRAZEK, I ELENA PA Unavailable Unavailable DRAZEK, I ELENA PA Unavailable Unavailable DRAZEK, I ELENA PA Unavailable Unavailable DRAZEK, I ELENA PA Unavailable Unavailable DRAZEK, I ELENA PA Unavailable Unavailable DRAZEK, I ELENA PA Unavailable Unavailable DRAZEK, I ELENA PA Unavailable Unavailable DRAZEK, I ELENA PA Unavailable Unavailable DRAZEK, I ELENA PA Unavailable Unavailable DRAZEK, I ELENA PA Unavailable Unavailable DRAZEK, I ELENA PA Unavailable Unavailable DRAZEK, I ELENA PA Unavailable Unavailable DRAZEK, I ELENA PA Unavailable Unavailable DRAZEK, I ELENA PA Unavailable Unavailable DRAZEK, I ELENA PA Unavailable Unavailable DRAZEK, I ELENA PA Unavailable Unavailable DRAZEK, I ELENA PA Unavailable Unavailable Rush, M Matt PA Unavailable Unavailable Rush, M Matt PA Unavailable Unavailable Rush, M Matt PA Unavailable Unavailable Rush, M Matt PA Unavailable Unavailable Rush, M Matt PA Unavailable Unavailable Rush, M Matt PA Unavailable Unavailable Rush, M Matt PA Unavailable Unavailable Rush, M Matt PA Unavailable Unavailable Rush, M Matt PA Unavailable Unavailable Rush, M Matt PA Unavailable Unavailable Rush, M Matt PA Unavailable Unavailable Rush, M Matt PA Unavailable Unavailable Rush, M Matt PA Unavailable Unavailable Rush, M Matt PA Unavailable Unavailable Rush, M Matt PA Unavailable Unavailable Rush, M Matt PA Unavailable Unavailable Rush, M Matt PA Unavailable Unavailable Rush, M Matt PA Unavailable Unavailable Rush, M Matt PA Unavailable Unavailable Rush, M Matt PA Unavailable Unavailable Rush, M Matt PA Unavailable Unavailable Rush, M Matt PA Unavailable Unavailable Rush, M Matt PA Unavailable Unavailable Rush, M Matt PA Unavailable Unavailable Rush, M Matt PA Unavailable Unavailable Rush, M Matt PA Unavailable Unavailable Rush, M Matt PA Unavailable Unavailable Rush, M Matt PA Unavailable Unavailable Rush, M Matt PA Unavailable Unavailable Rush, M Matt PA Unavailable Unavailable Rush, M Matt PA Unavailable Unavailable Rush, M Matt PA Unavailable Unavailable Rush, M Matt PA Unavailable Unavailable Rush, M Matt PA Unavailable Unavailable Rush, M Matt PA Unavailable Unavailable Rush, M Matt PA Unavailable Unavailable Rush, M Matt PA Unavailable Unavailable Rush, M Matt PA Unavailable Unavailable Rush, M Matt PA Unavailable Unavailable Rush, M Matt PA Unavailable Unavailable Rush, M Matt PA Unavailable Unavailable Rush, M Matt PA Unavailable Unavailable Rush, M Matt PA Unavailable Unavailable Rush, M Matt PA Unavailable Unavailable Rush, M Matt PA Unavailable Unavailable Rush, M Matt PA Unavailable Unavailable Rush, M Matt PA Unavailable Unavailable SUMI CARTER MD Unavailable Unavailable SUMI CARTER MD Unavailable Unavailable SUMI CARTER MD Unavailable Unavailable SUMI CARTER MD Unavailable Unavailable SUMI CARTER MD Unavailable Unavailable SUMI CARTER MD Unavailable Unavailable SUMI CARTER MD Unavailable Unavailable SUMI CARTER MD Unavailable Unavailable SUMI CARTER MD Unavailable Unavailable SUMI CARTER MD Unavailable Unavailable SUMI CATRER MD Unavailable Unavailable SUMI CARTER MD Unavailable Unavailable SUMI CARTER MD Unavailable Unavailable SUMI CARTER MD Unavailable Unavailable SUMI CARTER MD Unavailable Unavailable SUMI CARTER MD Unavailable Unavailable SUMI CARTER MD Unavailable Unavailable SUMI CARTER MD Unavailable Unavailable SUMI CARTER MD Unavailable Unavailable SUMI CARTER MD Unavailable Unavailable SUMI CARTER MD Unavailable Unavailable SUMI CARTER MD Unavailable Unavailable SUMI CARTER MD Unavailable Unavailable SUMI CARTER MD Unavailable Unavailable SUMI CARTER MD Unavailable Unavailable SUMI CARTER MD Unavailable Unavailable SUMI CARTER MD Unavailable Unavailable SUMI CARTER MD Unavailable Unavailable SUMI CARTER MD Unavailable Unavailable Rush, M Matt PA Unavailable Unavailable Rush, M Matt PA Unavailable Unavailable Rush, M Matt PA Unavailable Unavailable Rush, M Matt PA Unavailable Unavailable Rush, M Matt PA Unavailable Unavailable Rush, M Matt PA Unavailable Unavailable Rush, M Matt PA Unavailable Unavailable Rush, M Matt PA Unavailable Unavailable Rush, M Matt PA Unavailable Unavailable Rush, M Matt PA Unavailable Unavailable Rush, M Matt PA Unavailable Unavailable Rush, M Matt PA Unavailable Unavailable Rush, M Matt PA Unavailable Unavailable Rush, M Matt PA Unavailable Unavailable Rush, M Matt PA Unavailable Unavailable Rush, M Matt PA Unavailable Unavailable Rush, M Matt PA Unavailable Unavailable Rush, M Matt PA Unavailable Unavailable Rush, M Matt PA Unavailable Unavailable Rush, M Matt PA Unavailable Unavailable Rush, M Matt PA Unavailable Unavailable Rush, M Matt PA Unavailable Unavailable Rush, M Matt PA Unavailable Unavailable Rush, M Matt PA Unavailable Unavailable Rush, M Matt PA Unavailable Unavailable Rush, M Matt PA Unavailable Unavailable Rush, M Matt PA Unavailable Unavailable Rush, M Matt PA Unavailable Unavailable Rush, M Matt PA Unavailable Unavailable Rush, M Matt PA Unavailable Unavailable Rush, M Matt PA Unavailable Unavailable Rush, M Matt PA Unavailable Unavailable Rush, M Matt PA Unavailable Unavailable Rush, M Matt PA Unavailable Unavailable Rush, M Matt PA Unavailable Unavailable Rush, M Matt PA Unavailable Unavailable Rush, M Matt PA Unavailable Unavailable Rush, M Matt PA Unavailable Unavailable Rush, M Matt PA Unavailable Unavailable Rush, M Matt PA Unavailable Unavailable Rush, M Matt PA Unavailable Unavailable Rush, M Matt PA Unavailable Unavailable Rush, M Matt PA Unavailable Unavailable Rush, M Matt PA Unavailable Unavailable Rush, M Matt PA Unavailable Unavailable Rush, M Matt PA Unavailable Unavailable Rush, M Matt PA Unavailable Unavailable LETTIERE, A SUMI PA Unavailable Unavailable LETTIERE, A SUMI PA Unavailable Unavailable LETTIERE, A SUMI PA Unavailable Unavailable LETTIERE, A SUMI PA Unavailable Unavailable LETTIERE, A SUMI PA Unavailable Unavailable LETTIERE, A SUMI PA Unavailable Unavailable LETTIERE, A SUMI PA Unavailable Unavailable LETTIERE, A SUMI PA Unavailable Unavailable LETTIERE, A SUMI PA Unavailable Unavailable LETTIERE, A SUMI PA Unavailable Unavailable LETTIERE, A SUMI PA Unavailable Unavailable LETTIERE, A SUMI PA Unavailable Unavailable LETTIERE, A SUMI PA Unavailable Unavailable LETTIERE, A SUMI PA Unavailable Unavailable LETTIERE, A SUMI PA Unavailable Unavailable LETTIERE, A SUMI PA Unavailable Unavailable LETTIERE, A SUMI PA Unavailable Unavailable LETTIERE, A SUMI PA Unavailable Unavailable LETTIERE, A SUMI PA Unavailable Unavailable LETTIERE, A SUMI PA Unavailable Unavailable LETTIERE, A SUMI PA Unavailable Unavailable LETTIERE, A SUMI PA Unavailable Unavailable LETTIERE, A SUMI PA Unavailable Unavailable LETTIERE, A SUMI PA Unavailable Unavailable LETTIERE, A SUMI PA Unavailable Unavailable LETTIERE, A SUMI PA Unavailable Unavailable LETTIERE, A SUMI PA Unavailable Unavailable LETTIERE, A SUMI PA Unavailable Unavailable LETTIERE, A SUMI PA Unavailable Unavailable Re-disclosure Warning The records that you are about to access may contain information from federally-assisted alcohol or drug abuse programs. If such information is present, then the following federally mandated warning applies: This information has been disclosed to you from records protected by federal confidentiality rules (42 CFR part 2). The federal rules prohibit you from making any further disclosure of this information unless further disclosure is expressly permitted by the written consent of the person to whom it pertains or as otherwise permitted by 42 CFR part 2. A general authorization for the release of medical or other information is NOT sufficient for this purpose. The Federal rules restrict any use of the information to criminally investigate or prosecute any alcohol or drug abuse patient.The records that you are about to access may contain highly sensitive health information, the redisclosure of which is protected by Article 27-F of the [facility] Public Health law. If you continue you may have access to information: Regarding HIV / AIDS; Provided by facilities licensed or operated by the [facility] Office of Mental Health; or Provided by the [facility] Office for People With Developmental Disabilities. If such information is present, then the following [facility] mandated warning applies: This information has been disclosed to you from confidential records which are protected by state law. State law prohibits you from making any further disclosure of this information without the specific written consent of the person to whom it pertains, or as otherwise permitted by law. Any unauthorized further disclosure in violation of state law may result in a fine or custodial sentence or both. A general authorization for the release of medical or other information is NOT sufficient authorization for further disc losure. Family History Family Member Name Family Member Gender Family Member Status Date o f Status Description Data Source(s) Unknown Unknown Problem [facility] ([facility]) Unknown Male Problem MED[facility] ([facility]) Unknown Male Problem MEDENT ([facility]) Unknown Male Problem [facility] ([facility]) Unknown Male Problem [facility] ([facility] Encounters Encounter Providers Location Date Indications Data Source(s ) Unknown [id number] [facility] [place] [address] 10/17/2020 12:00:00 AM EST [facility]CW1 [facility] Outpatient Attender: SUMI Rosen myke 10/01/2020 07:10:00 AM EST [facility] ([facility] Outpatient Attender: SUMI Flores Prim myke 08/25/2020 08:00:00 AM EST [facility] ([facility] Outpatient Attender: SUMI CARTER MD 06/05/2020 12:00:0 0 AM [facility] Outpatient Attender: SUMI CARTER MD 05/29/2020 12:00:0 0 AM [facility] Outpatient Attender: SUMI CARTER MD 05/08/2020 12:00:0 0 AM [facility] Outpatient Attender: Matt LA [facility] 04/21 08:30:00 AM EDT [facility] Out[facility] Attender: Matt LA 04/21 08:20:00 AM EDT - 04/21/2020 08:20:[address] [facility] Outpatient Attender: ELENA LA Physical Therapy 04/15/2020 0 1:10:00 PM EDT MED[facility] ([facility] ) Outpatient Attender: ELENA LA Physical Therapy 03/07/2020 0 8:45:00 AM EDT MED[facility] ([facility] ) Outpatient Referrer: Matt LA 03/06/2020 05:27:00 AM EDT [facility] Unknown [id number] [facility] [place] [address] 02/26/2020 12:00:00 AM EDT eCW1 ([facility]) Outpatient Attender: SUMI Rosen myke 02/22/2020 08:50:00 AM EDT [facility] ([facility], [facility]) [facility] [id number] [facility] [place] [address] 09/10/2019 12:00:00 AM EST eCW1 ([facility]) Medications Medication Brand Name Start Date Product Form Dose Route Admi nistrative Instructions Pharmacy Instructions Status Indications Reaction Description Data Source(s) Oseltamivir 75 MG Oral Capsule Oseltamivir Phosphate 08/25/2020 12:00:00 AM EST ORAL completed MEDENT ([facility], [facility]) gabapentin 100 MG Oral Capsule Gabapentin 03/07/2020 12:00:00 AM EDT ORAL active MEDENT ([facility]) tramadol hydrochloride 50 MG Oral Tablet Tramadol HCL 03/06/2020 12:00:00 AM EDT active MEDENT ([facility] ) tramadol hydrochloride 50 MG Oral Tablet Tramadol HCL 03/02/2020 12:00:00 AM EDT completed MEDENT ([facility]) Prednisone 20 MG Oral Tablet Prednisone 03/02/2020 12:00:00 AM EDT completed MED[facility] ([facility]) Ibuprofen 600 MG Oral Tablet Ibuprofen 02/25/2020 12:00:00 AM EDT ORAL completed MED[facility] ([facility]) tizanidine 4 MG Oral Tablet Tizanidine HCL 02/25/2020 12:00:00 AM EDT ORAL active MED[facility] ([facility]) Prednisone 20 MG Oral Tablet Prednisone 02/23/2020 12:00:00 AM EDT completed MED[facility] ([facility]) Lidocaine Lidocaine 02/23/2020 12:00:00 AM EDT act boo MEDENT ([facility]) tizanidine 4 MG Oral Capsule Tizanidine HCL 02/22/2020 12:00:00 AM EDT active [facility] ([facility]) Ibuprofen 800 MG Oral Tablet Ibuprofen 02/22/2020 12:00:00 AM EDT active [facility] ([facility] 4 mg 02/22/2020 12:00:00 AM EDT tablet 14 TAKE ONE TABLET BY MOUTH AT BEDTIME NEEDED TAKE ONE TABLET BY MOUTH AT BEDTIME NEEDED SOLD: [facility] 800 mg 02/22/2020 12:00:00 AM EDT tablet 50 TAKE ONE TABLET BY MOUTH EVERY 6 TO 8 HOURS WITH FOOD TAKE ONE TABLET BY MOUTH EVERY 6 TO 8 HOURS WITH FOOD SOLD: 02/22/2020 [facility] Insurance Providers Payer name Policy type / Coverage type Policy ID Covered republican ID Covered republican's relationship to rush Policy Rush Plan Information [facility] [id number] SP [id number] [facility] I [id number] Self [id number] MEDICAID [id number] Self [id number] [employer] COMMUNTY PLAN [id number] [facility] O [id number] S [id number] [facility] [id number] SP [id number] ANSI-Medicaid [id number] [facility] Communty Plan Medicaid [id number] Self [id number] [facility] Health Maintenance Organization (HMO) [id number] Self [id number] ANSI-Medicaid [id number] ANSI-Medicaid [id number] ANSI-Medicaid [id number] ANSI-Medicaid [id number] ANSI-Medicaid [id number] ANSI-Medicaid [id number] [facility] Health Maintenance Organization (HMO) [id number] Self [id number] [facility] Health Maintenance Organization (HMO) [id number] Self [id number] Medicaid [place] Medigap Part B [id number] Self [id number] [facility] Health Maintenance Organization (HMO) [id number] Self [id number] [facility] Health Maintenance Organization (HMO) [id number] Self [id number] [facility] [id number] SP [id number] [facility] Communty Plan Medicaid [id number] Self [id number] [place] Medig[place] Part B [id number] Self [id number] [facility] Health Maintenance Organization (O) [id number] Self [id number] [facility] Community Plan Commercial [id number] Self [id number] [facility] Community Plan Commercial [id number] Self [id number] [facility] Community Plan Commercial [id number] Self [id number] [facility] Community Plan Commercial [id number] Self [id number] [facility] Community Plan Commercial [id number] Self [id number] [facility] Health Maintenance Organization (HMO) [id number] Self [id number] [facility] Health Maintenance Organization (HMO) Self BS [place] Medigap Part B Self Medicaid [place] Medicaid Self UHC I [id number] Self [id number] [employer] COMMUNITY PLAN [facility] [id number] SP [id number] [facility] [id number] MEDICAID [id number] SP [id number] [employer] COMMUNITY PLAN [facility] [id number] SP [id number] [employer] I [id number] Self [id number] [facility](MCAID) P [id number] S [id number] MEDICAID P [id number] HMO BLUE [id number] SP [id number] Problems, Conditions, and Diagnoses Code Display Name Description Problem Type Effective Dates Data Source(s) [id number] Pure hypercholesterolemia Pure hypercholesterolemia Pr oblem 02/26/2020 12:00:00 AM EDT MEDENT ([facility]) [id number] Foot drop, right foot Foot drop, right foot Diagnosis 04/21/2020 08:20:[address] 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 Surgeries/Procedures Procedure Description Date Indications Data Source(s) Injec Anesthetic Agent/Steroid Trans Epidural Lumb/Sacral Si ngle 05/05/2020 12:00:00 AM EDT [facility] ([facility]) Epidurography Radiological Supervision & Interpretation 05/05/2020 12:00:00 AM EDT [facility] ([facility]) Moderate Sedation Services; Same Phys Intl 15 Mins; PT >= 5 Years 05/05/2020 12:00:00 AM EDT [facility] ([facility]) Needle electromyography, each extremity, with related paraspinal areas, when performed, done with nerve conduction, amplitude and latency/velocity study; complete, five or more muscles studied, innervated by three or more nerves or four or more spinal levels (list separately in addition to the code for primary procedure). 04/02/2020 12:00:00 AM EDT MEDSUNITHA T ([facility]) [id number] Nerve conduction studies 7-8 studies NEW 201204/02/2020 12:00:00 AM EDT MED[facility] ([facility]) Therapeutic, Prophylactic Or Diagnostic Injection Subq/Im 02/22/2020 12:00:00 AM EDT MED[facility] ([facility]) Results ID Date Data Source [id number] 10/01/2020 12:00:00 AM EST [facility] Name Value Range Interpretation Code Description Data Lizeth rce(s) Supporting Document(s) SARS coronavirus 2 Ag Negative [facility] This lab was ordered by [facility] and reported by [facility]. ID Date Data Source [id number] 04/04/2020 03:49:00 PM EDT MEDENT ([facility] ) Name Value Range Interpretation Code Description Data Lizeth rce(s) Supporting Document(s) Laboratory test finding (navigational concept) Laboratory test result MED[facility] ([facility] ) ID Date Data Source [id number] 02/23/2020 02:33:00 PM EDT MED[facility] ([facility] ) Name Value Range Interpretation Code Description Data Lizeth rce(s) Supporting Document(s) Hematocrit [Volume Fraction] of Blood 44.0 38.0-51.0 [facility] ([facility] ) ID Date Data Source [id number] 02/23/2020 02:33:00 PM EDT [facility] ([facility] ) Name Value Range Interpretation Code Description Data Lizeth rce(s) Supporting Document(s) Glucose [Mass/volume] in Blood 150 70-105 [facility] ([facility]) ID Date Data Source [id number] 02/23/2020 02:33:00 PM EDT [facility] ([facility] ) Name Value Range Interpretation Code Description Data Lizeth rce(s) Supporting Document(s) Sodium [Moles/volume] in Blood 139 136-145 [facility] ([facility]) ID Date Data Source [id number] 02/23/2020 02:33:00 PM EDT [facility] ([facility] ) Name Value Range Interpretation Code Description Data Lizeth rce(s) Supporting Document(s) Potassium [Moles/volume] in Blood 4.0 3.5-5.1 [facility] ([facility]) ID Date Data Source [id number] 02/23/2020 02:33:00 PM EDT MED[facility] ([facility] ) Name Value Range Interpretation Code Description Data Lizeth rce(s) Supporting Document(s) Calcium.ionized [Moles/volume] in Blood 5.2 4.5-5.3 [facility] ([facility]) ID Date Data Source [id number] 02/23/2020 02:33:00 PM EDT [facility] ([facility]) Name Value Range Interpretation Code Description Data Lizeth rce(s) Supporting Document(s) Chloride [Moles/volume] in Blood 103 98-109 [facility] ([facility]) ID Date Data Source [id number] 02/23/2020 02:33:00 PM EDT [facility] ([facility]) Name Value Range Interpretation Code Description Data Lizeth rce(s) Supporting Document(s) Carbon dioxide, total [Moles/volume] in Blood 25.0 23.0-27.0 [facility] ([facility]) ID Date Data Source [id number] 02/23/2020 02:33:00 PM EDT [facility] ([facility]) Name Value Range Interpretation Code Description Data Lizeth rce(s) Supporting Document(s) Urea nitrogen [Mass/volume] in Blood 18 8-26 [facility] ([facility]) ID Date Data Source [id number] 02/23/2020 02:33:00 PM EDT [facility] ([facility]) Name Value Range Interpretation Code Description Data Lizeth rce(s) Supporting Document(s) Creatinine [Mass/volume] in Blood 0.8 0.6-1.3 [facility] ([facility]) ID Date Data Source [id number] 02/23/2020 02:09:00 PM EDT [facility] ([facility]) Name Value Range Interpretation Code Description Data Lizeth rce(s) Supporting Document(s) Leukocytes [#/volume] in Blood by Automated count 9.0 4.0-10.0 [facility] ([facility]) ID Date Data Source [id number] 02/23/2020 02:09:00 PM EDT [facility] ([facility]) Name Value Range Interpretation Code Description Data Lizeth rce(s) Supporting Document(s) Erythrocytes [#/volume] in Blood by Automated count 5.26 4.30-6 .10 [facility] ([facility]) ID Date Data Source [id number] 02/23/2020 02:09:00 PM EDT [facility] [facility] Name Value Range Interpretation Code Description Data Lizeth rce(s) Supporting Document(s) Hemoglobin [Mass/volume] in Blood 15.4 13.5-17.5 [facility] ([facility]) ID Date Data Source [id number] 02/23/2020 02:09:00 PM EDT [facility] ([facility]) Name Value Range Interpretation Code Description Data Lizeth rce(s) Supporting Document(s) Hematocrit [Volume Fraction] of Blood by Automated count 44.4 4 2.0-52.0 [facility] ([facility]) ID Date Data Source [id number] 02/23/2020 02:09:00 PM EDT [facility] ([facility]) Name Value Range Interpretation Code Description Data Lizeth rce(s) Supporting Document(s) Erythrocyte mean corpuscular volume [Entitic volume] by Auto mated count 84.4 80.0-96.0 [facility] ([facility]) ID Date Data Source [id number] 02/23/2020 02:09:00 PM EDT [facility] ([facility]) Name Value Range Interpretation Code Description Data Lizeth rce(s) Supporting Document(s) Erythrocyte mean corpuscular hemoglobin [Entitic mass] by Au tomated count 29.3 27.0-33.0 [facility] ([facility]) ID Date Data Source [id number] 02/23/2020 02:09:00 PM EDT [facility] ([facility]) Name Value Range Interpretation Code Description Data Lizeth rce(s) Supporting Document(s) Erythrocyte mean corpuscular hemoglobin concentration [Mass/volume] by Automated count 34.7 32.0-36.5 [facility] ID Date Data Source [id number] 02/23/2020 02:09:00 PM EDT [facility] ([facility]) Name Value Range Interpretation Code Description Data Lizeth rce(s) Supporting Document(s) Erythrocyte distribution width [Ratio] by Automated count 12.8 11.5-14.5 [facility] ([facility]) ID Date Data Source [id number] 02/23/2020 02:09:00 PM EDT [facility] ([facility]) Name Value Range Interpretation Code Description Data Lizeth rce(s) Supporting Document(s) Platelets [#/volume] in Blood by Automated count 214 150-450 [facility] ([facility]) ID Date Data Source [id number] 02/23/2020 02:09:00 PM EDT [facility] ([facility]) Name Value Range Interpretation Code Description Data Lizeth rce(s) Supporting Document(s) Neutrophils [#/volume] in Blood by Automated count 73.4 36.0-66 .0 [facility] ([facility]) ID Date Data Source [id number] 02/23/2020 02:09:00 PM EDT [facility] ([facility]) Name Value Range Interpretation Code Description Data Lizeth rce(s) Supporting Document(s) Lymphocytes/100 leukocytes in Blood by Automated count 19.4 24. 0-44.0 [facility] ([facility]) ID Date Data Source [id number] 02/23/2020 02:09:00 PM EDT [facility] ([facility]) Name Value Range Interpretation Code Description Data Lizeth rce(s) Supporting Document(s) Monocytes/100 leukocytes in Blood by Automated count 6.5 0.0-5 .0 [facility] ([facility]) ID Date Data Source [id number] 02/23/2020 02:09:00 PM EDT [facility] ([facility]) Name Value Range Interpretation Code Description Data Lizeth rce(s) Supporting Document(s) Eosinophils/100 leukocytes in Blood by Automated count 0.2 0.0 -3.0 [facility] ([facility]) ID Date Data Source [id number] 02/23/2020 02:09:00 PM EDT [facility] ([facility]) Name Value Range Interpretation Code Description Data Lizeth rce(s) Supporting Document(s) Basophils/100 leukocytes in Blood by Automated count 0.3 0.0-1 .0 [facility] ([facility]) ID Date Data Source [id number] 02/23/2020 02:09:00 PM EDT [facility] ([facility]) Name Value Range Interpretation Code Description Data Lizeth rce(s) Supporting Document(s) Immature granulocytes/100 leukocytes in Blood by Automated count 0.2 0-3.0 [facility] ([facility]) ID Date Data Source [id number] 02/23/2020 02:09:00 PM EDT [facility] ([facility]) Name Value Range Interpretation Code Description Data Lizeth rce(s) Supporting Document(s) Nucleated erythrocytes/100 leukocytes [Ratio] in Blood by Au tomated count 0.0 0-0 [facility] ([facility]) ID Date Data Source [id number] 02/23/2020 02:09:00 PM EDT [facility] ([facility]) Name Value Range Interpretation Code Description Data Lizeth rce(s) Supporting Document(s) Neutrophils [#/volume] in Blood by Automated count 6.6 1.5-8.5 [facility] ([facility]) ID Date Data Source [id number] 02/23/2020 02:09:00 PM EDT [facility] ([facility]) Name Value Range Interpretation Code Description Data Lizeth rce(s) Supporting Document(s) Lymphocytes [#/volume] in Blood by Automated count 1.8 1.5-5.0 [facility] ([facility]) ID Date Data Source [id number] 02/23/2020 02:09:00 PM EDT [facility] ([facility]) Name Value Range Interpretation Code Description Data Lizeth rce(s) Supporting Document(s) Monocytes [#/volume] in Blood by Automated count 0.6 0.0-0.8 [facility] ([facility]) ID Date Data Source [id number] 02/23/2020 02:09:00 PM EDT [facility] ([facility]) Name Value Range Interpretation Code Description Data Lizeth rce(s) Supporting Document(s) Eosinophils [#/volume] in Blood by Automated count 0.0 0.0-0.5 [facility] ([facility]) ID Date Data Source [id number] 02/23/2020 02:09:00 PM EDT [facility] ([facility]) Name Value Range Interpretation Code Description Data Lizeth rce(s) Supporting Document(s) Basophils [#/volume] in Blood by Automated count 0.0 0.0-0.2 [facility] ([facility]) Procedure Social History Code Duration Value Status Description Data Source(s ) Smoking 10/01/2020 12:00:00 AM EST Patient is a former smoker completed Patient is a former smoker [facility] ([facility], [facility]) Smoking 02/22/2020 12:00:00 AM EDT Patient is a former smoker completed Patient is a former smoker [facility] ([facility], ) Vital Signs ID Date Data Source [id number] Name Value Range Interpretation Code Description Data Source(s) Body mass index (BMI) [Ratio] 32.4 kg/m2 32.4 k g/m2 [facility] ([facility], [facility]) Body height 65 [in_i] 65 [in_i] [facility] ([facility], [facility]) 5'5" Body weight 195.00 [lb_av] 195.00 [lb_av] [facility] T ([facility], [facility]) Body temperature 98.0 [degF] 98.0 [degF] [facility] ([facility] [place], [facility]) Oxygen saturation in Arterial blood by Pulse oximetry 98 % 98 % [facility] ([facility], [facility]) Respiratory rate 16 /min 16 /min [facility] ( [facility], [facility]) Heart rate 73 /min 73 /min [facility] ([facility], [facility]) Diastolic blood pressure 92 mm[Hg] 92 mm[Hg] [facility] ([facility], [facility]) Systolic blood pressure 132 mm[Hg] 132 mm[Hg] [facility] [place], [facility]) Body mass index (BMI) [Ratio] 32.8 kg/m2 32.8 k g/m2 [facility] [place], [facility]) Body height 65 [in_i] 65 [in_i] [facility] ([facility], [facility]) 5'5" Body weight 197.00 [lb_av] 197.00 [lb_av] [facility] T ([facility], [facility]) Body temperature 98.5 [degF] 98.5 [degF] [facility] ([facility] [place], [facility]) Oxygen saturation in Arterial blood by Pulse oximetry 98 % 98 % [facility] ([facility], [facility]) Respiratory rate 16 /min 16 /min [facility] ( [facility], [facility]) Heart rate 73 /min 73 /min [facility] ([facility], [facility]) Diastolic blood pressure 96 mm[Hg] 96 mm[Hg] [facility] ([facility], [facility]) Systolic blood pressure 136 mm[Hg] 136 mm[Hg] M EDENT ([facility], [facility]) Body surface area 1.97 m2 1.97 m2 [facility] ([facility]) Body mass index (BMI) [Ratio] 32.8 kg/m2 32.8 k g/m2 [facility] ([facility]) Body height 65 [in_i] 65 [in_i] [facility] ([facility]) 5'5" Body weight 89.359 kg 89.359 kg [facility] ([facility]) Body weight 197.00 [lb_av] 197.00 [lb_av] [facility] T ([facility]) Oxygen saturation in Arterial blood by Pulse oximetry 99 % 99 % [facility] ([facility]) Respiratory rate 16 /min 16 /min [facility] ( [facility]) Body temperature 96.8 [degF] 96.8 [degF] [facility] ([facility]) Heart rate 69 /min 69 /min [facility] ([facility]) Diastolic blood pressure 84 mm[Hg] 84 mm[Hg] [facility] ([facility]) Systolic blood pressure 116 mm[Hg] 116 mm[Hg] M EDENT ([facility]) Body mass index (BMI) [Ratio] 31.9 kg/m2 31.9 k g/m2 [facility] ([facility]) Body weight 192.00 [lb_av] 192.00 [lb_av] [facility] T ([facility] Body height 65 [in_i] 65 [in_i] [facility] ([facility] 5'5" Body temperature 96.0 [degF] 96.0 [degF] [facility] ([facility] Body mass index (BMI) [Ratio] 33.0 kg/m2 33.0 k g/m2 [facility] ([facility] Body weight 199.31 [lb_av] 199.31 [lb_av] [facility] T ([facility] Body mass index (BMI) [Ratio] 32.9 kg/m2 32.9 k g/m2 [facility] ([facility] Body weight 198.00 [lb_av] 198.00 [lb_av] [facility] T ([facility] Body height 65 [in_i] 65 [in_i] [facility] ([facility] 5'5" Body temperature 97.8 [degF] 97.8 [degF] [facility] ([facility]) Body mass index (BMI) [Ratio] 33.0 kg/m2 33.0 k g/m2 [facility]) Body height 65 [in_i] 65 [in_i] [facility] 5'5" Body weight 198.38 [lb_av] 198.38 [lb_av] [facility] T ([facility], [facility]) Body temperature 98.4 [degF] 98.4 [degF] [facility]) Oxygen saturation in Arterial blood by Pulse oximetry 98 % 98 % [facility]) Heart rate 67 /min 67 /min [facility] ([facility] [place], [facility]) Diastolic blood pressure 82 mm[Hg] 82 mm[Hg] [facility] ([facility]) Systolic blood pressure 120 mm[Hg] 120 mm[Hg] [facility]) Body weight 89.813 kg 89.813 kg [facility] ([facility]) Body mass index (BMI) [Ratio] 34.0 kg/m2 34.0 k g/m2 [facility] ([facility]) Body weight 198.00 [lb_av] 198.00 [lb_av] [facility] T ([facility]) Body height 64 [in_i] 64 [in_i] [facility] ([facility]) 5'4" Body temperature 97.4 [degF] 97.4 [degF] [facility] ([facility]) Oxygen saturation in Arterial blood by Pulse oximetry 97 % 97 % [facility] ([facility]) Heart rate 87 /min 87 /min [facility] ([facility] [place]) Diastolic blood pressure 78 mm[Hg] 78 mm[Hg] [facility] ([facility]) Systolic blood pressure 118 mm[Hg] 118 mm[Hg] [facility] ([facility])
[2020-11-07] MEDS ORDERED: FAMO40TA3 PO (16:06)
[2020-11-07] MEDS ORDERED: NITROGLYCERIN 0.4 MG SUBL TABLET SL STA (16:10)
[2020-11-07] MEDS ORDERED: ASPIRIN 81 MG CHEW TABLET PO ONE (16:15)
[2020-11-07 16:26] VITALS: BP 125/79
[2020-11-07 16:27] LABS: BASO # 0.1 10^3/uL (0.0-0.2); BASO % 0.7 % (0.0-1.0); EOS # 0.1 10^3/uL (0.0-0.5); EOS % 1.4 % (0.0-3.0); HEMATOCRIT 45.7 % (42.0-52.0); HEMOGLOBIN 15.5 g/dl (13.5-17.5); LYMPH # 2.3 10^3/uL (1.5-5.0); LYMPH % 32.5 % (24.0-44.0); MEAN CORPUSCULAR HEMOGLOBIN 28.8 pg (27.0-33.0); MEAN CORPUSCULAR HGB CONC 33.9 g/dl (32.0-36.5); MEAN CORPUSCULAR VOLUME 84.9 fl (80.0-96.0); MONO # 0.6 10^3/uL (0.0-0.8); MONO % 8.8 % (2.0-8.0); NEUTROPHILS # 4.1 10^3/uL (1.5-8.5); NEUTROPHILS % 56.3 % (36.0-66.0); PLATELET COUNT, AUTOMATED 212 10^3/uL (150-450); RED BLOOD COUNT 5.38 10^6/uL (4.30-6.10); WHITE BLOOD COUNT 7.2 10^3/uL (4.0-10.0)
[2020-11-07 16:38] LABS: PROTHROMBIN TIME 13.4 SECONDS (12.5-14.3)
--- NOTE | 2020-11-07 16:38 | REP ---
INDICATION: CHEST PAIN. COMPARISON: 04/17/2015. TECHNIQUE: SINGLE PORTABLE AP VIEW OF THE CHEST WAS PERFORMED. FINDINGS: There is no evidence of acute infiltrate. There is mild left ventricular prominence. The mediastinal silhouette is unchanged. There is mild elevation of the right hemidiaphragm. Plate and screws are seen in the lower cervical spine. IMPRESSION: NO ACUTE PULMONARY DISEASE. <Electronically signed by David Villanueva > 11/07/20 [id number]
[2020-11-07 16:39] LABS: PARTIAL THROMBOPLASTIN TIME 27.5 SECONDS (24.2-38.5)
[2020-11-07 17:05] LABS: ALBUMIN 4.2 GM/DL (3.2-5.2); ALT/SGPT 46 U/L (12-78); BILIRUBIN,DIRECT < 0.1 MG/DL (0.0-0.2); BILIRUBIN,TOTAL 0.4 MG/DL (0.2-1.0); BLOOD UREA NITROGEN 24 MG/DL (7-18); CALCIUM LEVEL 9.5 MG/DL (8.5-10.1); CARBON DIOXIDE LEVEL 28 MEQ/L (21-32); CHLORIDE LEVEL 102 MEQ/L (98-107); CK-MB VALUE MASS 1.1 NG/ML (<3.6); CPK CREATINE PHOSPHOKINASE 83 U/L (39-308); CREATININE FOR GFR 0.86 MG/DL (0.70-1.30); FREE T4 1.01 NG/DL (0.76-1.46); GLOMERULAR FILTRATION RATE > 60.0 (>60); GLUCOSE, FASTING 92 MG/DL (70-100); LIPASE 251 U/L (73-393); MB/CK RELATIVE INDEX 1.33 (< OR =4); POTASSIUM SERUM 3.8 MEQ/L (3.5-5.1); SODIUM LEVEL 139 MEQ/L (136-145); TOTAL PROTEIN 7.4 GM/DL (6.4-8.2); TROPONIN I < 0.02 NG/ML (< 0.10)
[2020-11-07] MEDS ORDERED: ISOVUE-370 76% 100ML VIAL As Ordered ONE ×2 (17:22→17:35)
--- OUTSIDE RECORDS SUMMARY | 2020-11-07 18:48 | CCD ---
Author Author [facility] Organization [facility] Address Unknown Phone Unavailable Care Team Providers Care Delivery Rep Name Role Phone Maris Rush Unavailable Unavailable [...] Unavailable Rush, M Matt PA Unavailable Unavailable Ruhs, M Matt PA Unavailable Unavailable Rush, M [...] Unavailable Rush, M Matt PA Unavailable Unavailable Ursh, M Matt PA Unavailable Unavailable Rush, M [...] is protected by Article 27-F of the [facility] Public Health law. If you continue you may have access to information: Regarding HIV / AIDS; Provided by facilities licensed or operated by the [facility] Office of Mental Health; or Provided by the [facility] Office for People With Developmental Disabilities. If such information is present, then the following [facility] mandated warning applies: This information has been [...] law may result in a fine or penitentiary sentence or both. A general authorization for the release of medical or other information is NOT sufficient authorization for further disc losure. Family History Family Member Name Family Member Gender Family Member Status Date o f Status Description Data Source(s) Unknown Unknown Problem MEDENT ([facility]) Unknown Male Problem MEDENT ([facility]) Unknown Male Problem MEDENT ([facility]) Unknown Male Problem [facility] ([facility]) Unknown Male Problem [facility] Encounters Encounter Providers Location Date Indications Data Source(s ) Unknown [address] [address] 10/17/2020 12:00:00 AM EST eCW1 ([facility]) Outpatient Attender: SUMI Rosen myke 10/01/2020 07:10:00 AM EST [facility]ENT ([facility] Outpatient Attender: SUMI Flores Prim myke 08/25/2020 08:00:00 AM EST MEDENT ([facility] Outpatient Attender: SUMI CARTER MD 06/05/2020 12:00:0 0 AM [facility] Outpatient Attender: SUMI CARTER MD 05/29/2020 12:00:0 0 AM [facility] Outpatient Attender: SUMI CARTER MD 05/08/2020 12:00:0 0 AM [facility] Outpatient Attender: Matt LA Family [facility] 04/21 08:30:00 AM EDT [facility] Outpatient Attender: Matt LA 04/21 08:20:00 AM EDT - 04/21/2020 08:20:00 AM EDT [facility] Outpatient Attender: ELENA LA Physical Therapy 04/15/2020 0 1:10:00 PM EDT MEDENT ([facility] ) Outpatient Attender: ELENA LA Physical Therapy 03/07/2020 0 8:45:00 AM EDT MEDENT ([facility] ) Outpatient Referrer: Matt LA 03/06/2020 05:27:00 AM EDT [facility] Rad[facility] Imaging Unknown [address] [address] 02/26/2020 12:00:00 AM EDT eCW1 ([facility]) Outpatient Attender: SUMI Rosen myke 02/22/2020 08:50:00 AM EDT MEDENT ([facility], [facility]) [facility] [address] [facility] [address] 09/10/2019 12:00:00 AM EST eCW1 ([facility]) Medications Medication Brand Name Start Date Product Form Dose Route Admi nistrative Instructions Pharmacy Instructions Status Indications Reaction Description Data Source(s) Oseltamivir 75 MG Oral Capsule Oseltamivir Phosphate 08/25/2020 12:00:00 AM EST ORAL completed MEDENT ([facility], [facility]) gabapentin 100 MG Oral Capsule Gabapentin 03/07/2020 12:00:00 AM EDT ORAL active MEDENT ([facility]) tramadol hydrochloride 50 MG Oral Tablet Tramadol HCL 03/06/2020 12:00:00 AM EDT active MEDENT ([facility] ) tramadol hydrochloride 50 MG Oral Tablet Tramadol HCL 03/02/2020 12:00:00 AM EDT completed MEDENT ([facility]) Prednisone 20 MG Oral Tablet Prednisone 03/02/2020 12:00:00 AM EDT completed MEDENT ([facility]) Ibuprofen 600 MG Oral Tablet Ibuprofen 02/25/2020 12:00:00 AM EDT ORAL completed MEDENT ([facility]) tizanidine 4 MG Oral Tablet Tizanidine HCL 02/25/2020 12:00:00 AM EDT ORAL active MEDENT ([facility]) Prednisone 20 MG Oral Tablet Prednisone 02/23/2020 12:00:00 AM EDT completed MEDENT ([facility]) Lidocaine Lidocaine 02/23/2020 12:00:00 AM EDT act [...] rush Policy Rush Plan Information [facility] [id number] SP [id number] [facility] I [id number] Self [id number] MEDICAID [id number] Self [id number] [facility] COMMUNTY PLAN [id number] 18 [id number] [facility] O [id number] S [id number] [facility] [id number] SP [id number] ANSI-Medicaid [id number] [facility] Communty Plan Medicaid [id number] Self [id number] [facility] Health Maintenance Organization (HMO) [id number] Self [id number] ANSI-Medicaid [id number] ANSI-Medicaid [id number] ANSI-Medicaid [id number] ANSI-Medicaid [id number] ANSI-Medicaid [id number] ANSI-Medicaid [id number] [facility] Health Maintenance Organization (HMO) [id number] Self [id number] [facility] Health Maintenance Organization (HMO) [id number] Self [id number] [place] Medig[place] Part B [id number] Self [id number] [facility] Health Maintenance Organization (HMO) [id number] Self [id number] [facility] Health Maintenance Organization (HMO) [id number] Self [id number] [facility] [id number] SP [id number] [facility] Communty Plan Medicaid [id number] Self [id number] [place]ig[place] Part B [id number] Self [id number] [facility] Health Maintenance Organization (O) [id number] Self [id number] [facility] Community Plan Commercial [id number] Self [id number] [facility] Community Plan Commercial [id number] Self [id number] [facility] Community Plan Commercial [id number] Self [id number] [facility] Community Plan Commercial [id number] Self [id number] [facility] Community Plan Commercial [id number] Self [id number] [facility] Health Maintenance Organization (HMO) [id number] Self [id number] [facility] Health Maintenance Organization (HMO) Self [facility] Medigap Part B Self [place] Self UHC I [id number] Self [id number] [facility] [id number] SP [id number] [facility] [id number] 93 [id number] MEDICAID [id number] SP [id number] [facility] [id number] SP [id number] [facility] I [id number] Self [id number] [facility]) P [id number] S [id number] MEDICAID P [id number] HMO BLUE [id number] SP [id number] Problems, Conditions, and Diagnoses Code Display Name Description Problem Type Effective Dates Data Source(s) [id number] Pure hypercholesterolemia Pure hypercholesterolemia Pr oblem 02/26/2020 12:00:00 AM EDT MEDENT ([facility]) [id number] Foot drop, right foot Foot drop, right foot Diagnosis 04/21/2020 08:20:00 AM EDT [facility] 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, 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, lumbar region Diagnosis 04/21/2020 08:20:00 AM T [facility] Surgeries/Procedures Procedure Description Date Indications Data Source(s) Injec Anesthetic Agent/Steroid Trans Epidural Lumb/Sacral Si ngle 05/05/2020 12:00:00 AM EDT MEDENT ([facility]) Epidurography Radiological Supervision & Interpretation 05/05/2020 12:00:00 AM EDT MEDENT ([facility]) Moderate Sedation Services; Same Phys Intl 15 Mins; PT >= 5 Years 05/05/2020 12:00:00 AM EDT MEDENT ([facility]) Needle electromyography, each extremity, with related paraspinal areas, when performed, done with nerve conduction, amplitude and latency/velocity study; complete, five or more muscles studied, innervated by three or more nerves or four or more spinal levels (list separately in addition to the code for primary procedure). 04/02/2020 12:00:00 AM EDT MEDSUNITHA T ([facility]) 72908 Nerve conduction studies 7-8 studies NEW 201204/02/2020 12:00:00 AM EDT MEDENT ([facility]) Therapeutic, Prophylactic Or Diagnostic Injection Subq/Im 02/22/2020 12:00:00 AM EDT MEDENT ([facility], [facility]) Results ID Date Data Source [id number] 10/01/2020 12:00:00 AM EST [place] Name Value Range Interpretation Code Description Data Lizeth rce(s) Supporting Document(s) SARS coronavirus 2 Ag Negative [place] This lab was ordered by [facility] and reported by [facility]. ID Date Data Source [id number] 04/04/2020 03:49:00 PM EDT MEDENT ([facility] ) Name Value Range Interpretation Code Description Data Lizeth rce(s) Supporting Document(s) Laboratory test finding (navigational concept) Laboratory test result MEDENT ([facility] ) ID Date Data Source [id number] 02/23/2020 02:33:00 PM EDT MEDENT ([facility] ) Name Value Range Interpretation Code Description Data Lizeth rce(s) Supporting Document(s) Hematocrit [Volume Fraction] of Blood 44.0 38.0-51.0 MEDENT ([facility] ) ID Date Data Source [id number] 02/23/2020 02:33:00 PM EDT MEDENT ([facility] ) Name Value Range Interpretation Code Description Data Lizeth rce(s) Supporting Document(s) Glucose [Mass/volume] in Blood 150 70-105 MEDENT ([facility]) ID Date Data Source [id number] 02/23/2020 02:33:00 PM EDT MEDENT ([facility] ) Name Value Range Interpretation Code Description Data Lizeth rce(s) Supporting Document(s) Sodium [Moles/volume] in Blood 139 136-145 MED[facility] ([facility]) ID Date Data Source [id number] 02/23/2020 02:33:00 PM EDT MEDENT ([facility] ) Name Value Range Interpretation Code Description Data Lizeth rce(s) Supporting Document(s) Potassium [Moles/volume] in Blood 4.0 3.5-5.1 MED[facility] ([facility]) ID Date Data Source [id number] 02/23/2020 02:33:00 PM EDT MEDENT ([facility] ) Name Value Range Interpretation Code Description Data Lizeth rce(s) Supporting Document(s) Calcium.ionized [Moles/volume] in Blood 5.2 4.5-5.3 MED[facility] ([facility]) ID Date Data Source [id number] 02/23/2020 02:33:00 PM EDT MEDENT ([facility]) Name Value Range Interpretation Code Description Data Lizeth rce(s) Supporting Document(s) Chloride [Moles/volume] in Blood 103 98-109 MED[facility] ([facility]) ID Date Data Source [id number] 02/23/2020 02:33:00 PM EDT MEDENT ([facility]) Name Value Range Interpretation Code Description Data Lizeth rce(s) Supporting Document(s) Carbon dioxide, total [Moles/volume] in Blood 25.0 23.0-27.0 MEDENT ([facility]) ID Date Data Source [id number] 02/23/2020 02:33:00 PM EDT MEDENT ([facility]) Name Value Range Interpretation Code Description Data Lizeth rce(s) Supporting Document(s) Urea nitrogen [Mass/volume] in Blood 18 8-26 MED[facility] ([facility]) ID Date Data Source [id number] 02/23/2020 02:33:00 PM EDT MEDENT ([facility]) Name Value Range Interpretation Code Description Data Lizeth rce(s) Supporting Document(s) Creatinine [Mass/volume] in Blood 0.8 0.6-1.3 MEDENT ([facility]) ID Date Data Source [id number] 02/23/2020 02:09:00 PM EDT MEDENT ([facility]) Name Value Range Interpretation Code Description Data Lizeth rce(s) Supporting Document(s) Leukocytes [#/volume] in Blood by Automated count 9.0 4.0-10.0 MEDENT ([facility]) ID Date Data Source [id number] 02/23/2020 02:09:00 PM EDT MEDENT ([facility]) Name Value Range Interpretation Code Description Data Lizeth rce(s) Supporting Document(s) Erythrocytes [#/volume] in Blood by Automated count 5.26 4.30-6 .10 MEDENT ([facility]) ID Date Data Source [id number] 02/23/2020 02:09:00 PM EDT MEDENT ([facility]) Name Value Range Interpretation Code Description Data Lizeth rce(s) Supporting Document(s) Hemoglobin [Mass/volume] in Blood 15.4 13.5-17.5 MED[facility] ([facility]) ID Date Data Source [id number] 02/23/2020 02:09:00 PM EDT MEDENT ([facility]) Name Value Range Interpretation Code Description Data Lizeth rce(s) Supporting Document(s) Hematocrit [Volume Fraction] of Blood by Automated count 44.4 4 2.0-52.0 MEDENT ([facility]) ID Date Data Source [id number] 02/23/2020 02:09:00 PM EDT MEDENT ([facility]) Name Value Range Interpretation Code Description Data Lizeth rce(s) Supporting Document(s) Erythrocyte mean corpuscular volume [Entitic volume] by Auto mated count 84.4 80.0-96.0 [facility] ([facility]) ID Date Data Source [id number] 02/23/2020 02:09:00 PM EDT MEDENT ([facility]) Name Value Range Interpretation Code Description Data Lizeth rce(s) Supporting Document(s) Erythrocyte mean corpuscular hemoglobin [Entitic mass] by Au tomated count 29.3 27.0-33.0 [facility] ([facility]) ID Date Data Source [id number] 02/23/2020 02:09:00 PM EDT MEDENT ([facility]) Name Value Range Interpretation Code Description Data Lizeth rce(s) Supporting Document(s) Erythrocyte mean corpuscular hemoglobin concentration [Mass/volume] by Automated count 34.7 32.0-36.5 [facility] ([facility] ID Date Data Source [id number] 02/23/2020 02:09:00 PM EDT MEDENT ([facility]) Name Value Range Interpretation Code Description Data Lizeth rce(s) Supporting Document(s) Erythrocyte distribution width [Ratio] by Automated count 12.8 11.5-14.5 MED[facility] ([facility]) ID Date Data Source [id number] 02/23/2020 02:09:00 PM EDT MEDENT ([facility]) Name Value Range Interpretation Code Description Data Lizeth rce(s) Supporting Document(s) Platelets [#/volume] in Blood by Automated count 214 150-450 MED[facility] ([facility]) ID Date Data Source [id number] 02/23/2020 02:09:00 PM EDT MEDENT ([facility]) Name Value Range Interpretation Code Description Data Lizeth rce(s) Supporting Document(s) Neutrophils [#/volume] in Blood by Automated count 73.4 36.0-66 .0 MED[facility] ([facility]) ID Date Data Source [id number] 02/23/2020 02:09:00 PM EDT MEDENT ([facility]) Name Value Range Interpretation Code Description Data Lizeth rce(s) Supporting Document(s) Lymphocytes/100 leukocytes in Blood by Automated count 19.4 24. 0-44.0 MEDENT ([facility]) ID Date Data Source [id number] 02/23/2020 02:09:00 PM EDT MEDENT ([facility]) Name Value Range Interpretation Code Description Data Lizeth rce(s) Supporting Document(s) Monocytes/100 leukocytes in Blood by Automated count 6.5 0.0-5 .0 MED[facility] ([facility]) ID Date Data Source [id number] 02/23/2020 02:09:00 PM EDT MEDENT ([facility]) Name Value Range Interpretation Code Description Data Lizeth rce(s) Supporting Document(s) Eosinophils/100 leukocytes in Blood by Automated count 0.2 0.0 -3.0 MEDENT ([facility]) ID Date Data Source [id number] 02/23/2020 02:09:00 PM EDT MEDENT ([facility]) Name Value Range Interpretation Code Description Data Lizeth rce(s) Supporting Document(s) Basophils/100 leukocytes in Blood by Automated count 0.3 0.0-1 .0 [facility] ([facility]) ID Date Data Source [id number] 02/23/2020 02:09:00 PM EDT MEDENT ([facility]) Name Value Range Interpretation Code Description Data Lizeth rce(s) Supporting Document(s) Immature granulocytes/100 leukocytes in Blood by Automated count 0.2 0-3.0 MED[facility] ([facility]) ID Date Data Source [id number] 02/23/2020 02:09:00 PM EDT MEDENT ([facility]) Name Value Range Interpretation Code Description Data Lizeth rce(s) Supporting Document(s) Nucleated erythrocytes/100 leukocytes [Ratio] in Blood by Au tomated count 0.0 0-0 [facility] ([facility]) ID Date Data Source [id number] 02/23/2020 02:09:00 PM EDT MEDENT ([facility]) Name Value Range Interpretation Code Description Data Lizeth rce(s) Supporting Document(s) Neutrophils [#/volume] in Blood by Automated count 6.6 1.5-8.5 MEDENT ([facility]) ID Date Data Source [id number] 02/23/2020 02:09:00 PM EDT MEDENT ([facility]) Name Value Range Interpretation Code Description Data Lizeth rce(s) Supporting Document(s) Lymphocytes [#/volume] in Blood by Automated count 1.8 1.5-5.0 MED[facility] ([facility]) ID Date Data Source [id number] 02/23/2020 02:09:00 PM EDT MEDENT ([facility]) Name Value Range Interpretation Code Description Data Lizeth rce(s) Supporting Document(s) Monocytes [#/volume] in Blood by Automated count 0.6 0.0-0.8 MED[facility] ([facility]) ID Date Data Source [id number] 02/23/2020 02:09:00 PM EDT MEDENT ([facility]) Name Value Range Interpretation Code Description Data Lizeth rce(s) Supporting Document(s) Eosinophils [#/volume] in Blood by Automated count 0.0 0.0-0.5 MEDENT ([facility]) ID Date Data Source [id number] 02/23/2020 02:09:00 PM EDT MEDENT ([facility]) Name Value Range Interpretation Code Description Data Lizeth rce(s) Supporting Document(s) Basophils [#/volume] in Blood by Automated count 0.0 0.0-0.2 MEDENT ([facility]) Procedure Social History Code Duration Value Status Description Data Source(s ) Smoking 10/01/2020 12:00:00 AM EST Patient is a former smoker completed Patient is a former smoker MEDENT ([facility]) Smoking 02/22/2020 12:00:00 AM EDT Patient is a former smoker completed Patient is a former smoker MEDENT ([facility], ) Vital Signs ID Date Data Source UNK Name Value Range Interpretation Code Description Data Source(s) Body mass index (BMI) [Ratio] 32.4 kg/m2 32.4 k g/m2 MEDENT ([facility], [facility]) Body height 65 [in_i] 65 [in_i] MEDENT ([facility], [facility]) 5'5" Body weight 195.00 [lb_av] 195.00 [lb_av] MEDEN T ([facility], [facility]) Body temperature 98.0 [degF] 98.0 [degF] MEDENT ([facility], [facility]) Oxygen saturation in Arterial blood by Pulse oximetry 98 % 98 % MEDENT ([facility], [facility]) Respiratory rate 16 /min 16 /min MEDENT ( [facility], [facility]) Heart rate 73 /min 73 /min MEDENT ([facility], [facility]) Diastolic blood pressure 92 mm[Hg] 92 mm[Hg] MEDENT ([facility], [facility]) Systolic blood pressure 132 mm[Hg] 132 mm[Hg] [facility], [facility]) Body mass index (BMI) [Ratio] 32.8 kg/m2 32.8 k g/m2 [facility], [facility]) Body height 65 [in_i] 65 [in_i] MEDENT ([facility], [facility]) 5'5" Body weight 197.00 [lb_av] 197.00 [lb_av] MEDEN T ([facility], [facility]) Body temperature 98.5 [degF] 98.5 [degF] MEDENT ([facility], [facility]) Oxygen saturation in Arterial blood by Pulse oximetry 98 % 98 % MEDENT ([facility], [facility]) Respiratory rate 16 /min 16 /min MEDENT ( [facility], [facility]) Heart rate 73 /min 73 /min MEDENT ([facility], [facility]) Diastolic blood pressure 96 mm[Hg] 96 mm[Hg] MEDENT ([facility], [facility]) Systolic blood pressure 136 mm[Hg] 136 mm[Hg] M EDENT ([facility], [facility]) Body surface area 1.97 m2 1.97 m2 MEDENT ([facility]) Body mass index (BMI) [Ratio] 32.8 kg/m2 32.8 k g/m2 MEDENT ([facility]) Body height 65 [in_i] 65 [in_i] MEDENT ([facility]) 5'5" Body weight 89.359 kg 89.359 kg MEDENT ([facility]) Body weight 197.00 [lb_av] 197.00 [lb_av] MEDEN T ([facility]) Oxygen saturation in Arterial blood by Pulse oximetry 99 % 99 % MEDENT ([facility]) Respiratory rate 16 /min 16 /min MEDENT ( [facility]) Body temperature 96.8 [degF] 96.8 [degF] MEDENT ([facility]) Heart rate 69 /min 69 /min MEDENT ([facility]) Diastolic blood pressure 84 mm[Hg] 84 mm[Hg] MEDENT ([facility]) Systolic blood pressure 116 mm[Hg] 116 mm[Hg] M EDENT ([facility]) Body mass index (BMI) [Ratio] 31.9 kg/m2 31.9 k g/m2 MEDENT ([facility]) Body weight 192.00 [lb_av] 192.00 [lb_av] MEDEN T ([facility] ) Body height 65 [in_i] 65 [in_i] MEDENT ([facility] ) 5'5" Body temperature 96.0 [degF] 96.0 [degF] MEDENT ([facility] ) Body mass index (BMI) [Ratio] 33.0 kg/m2 33.0 k g/m2 MED[facility] ([facility] ) Body weight 199.31 [lb_av] 199.31 [lb_av] MEDEN T ([facility] ) Body mass index (BMI) [Ratio] 32.9 kg/m2 32.9 k g/m2 MED[facility] ([facility] ) Body weight 198.00 [lb_av] 198.00 [lb_av] MEDEN T ([facility] ) Body height 65 [in_i] 65 [in_i] MEDENT ([facility] ) 5'5" Body temperature 97.8 [degF] 97.8 [degF] [facility] ([facility]) Body mass index (BMI) [Ratio] 33.0 kg/m2 33.0 k g/m2 [facility], [facility]) Body height 65 [in_i] 65 [in_i] [facility] ([facility] 5'5" Body weight 198.38 [lb_av] 198.38 [lb_av] MEDEN T ([facility], [facility]) Body temperature 98.4 [degF] 98.4 [degF] [facility] ([facility], M [facility]) Oxygen saturation in Arterial blood by Pulse oximetry 98 % 98 % [facility] ([facility], [facility] Heart rate 67 /min 67 /min [facility] ([facility], [facility]) Diastolic blood pressure 82 mm[Hg] 82 mm[Hg] [facility] ([facility], [facility]) Systolic blood pressure 120 mm[Hg] 120 mm[Hg] [facility] ([facility], [facility] Body weight 89.813 kg 89.813 kg [facility] ([facility]) Body mass index (BMI) [Ratio] 34.0 kg/m2 34.0 k g/m2 [facility] ([facility]) Body weight 198.00 [lb_av] 198.00 [lb_av] [facility] ([facility]) Body height 64 [in_i] 64 [in_i] [facility] ([facility]) 5'4" Body temperature 97.4 [degF] 97.4 [degF] [facility] ([facility]) Oxygen saturation in Arterial blood by Pulse oximetry 97 % 97 % [facility] ([facility]) Heart rate 87 /min 87 /min [facility] ([facility]) Diastolic blood pressure 78 mm[Hg] 78 mm[Hg] [facility] ([facility]) Systolic blood pressure 118 mm[Hg] 118 mm[Hg] [facility] ([facility])
--- NOTE | 2020-11-07 19:13 | REPVR ---
PROCEDURE INFORMATION: Exam: CT Angiography Chest With Contrast Exam date and time: 11/07/2020 5:18 PM Age: 40 years old Clinical indication: Shortness of breath; Chest pain; Additional info: Chest pain, SOB TECHNIQUE: Imaging protocol: Computed tomographic angiography of the chest with contrast. 3D rendering (Not supervised by radiologist): MIP and/or 3D reconstructed images were created by the technologist. Radiation optimization: All CT scans at this facility use at least one of these dose optimization techniques: automated exposure control; mA and/or kV adjustment per patient size (includes targeted exams where dose is matched to clinical indication); or iterative reconstruction. Contrast material: ISOVUE 370; Contrast volume: 75 ml; Contrast route: INTRAVENOUS (IV); COMPARISON: [place] PORTABLE CHEST X-RAY 11/07/2020 4:28 PM FINDINGS: Pulmonary arteries: No CT evidence of acute pulmonary embolism. Aorta: No CT evidence of acute thoracic aortic dissection, thoracic aneurysm or acute intramural thoracic aortic hematoma. Lungs: Both lungs are well-aerated. There are, however, patchy areas of pulmonary air trapping with a mosaic pattern of alternating hypo- and hyperattenuating lung parenchyma in both lower lungs. Pleural spaces: Unremarkable. No pneumothorax. No pleural effusion. Heart: The heart size is normal. Normal pulmonary vasculature. No coronary artery calcification is present. Lymph nodes: Unremarkable. No enlarged lymph nodes. Bones/joints: Unremarkable. No acute fracture. Soft tissues: Unremarkable. IMPRESSION: 1. No CT evidence of acute pulmonary embolism. 2. No CT evidence of acute thoracic aortic dissection, thoracic aneurysm or acute intramural thoracic aortic hematoma. 3. The heart size is normal. Normal pulmonary vasculature. No coronary artery calcification is present. 4. Both lungs are well-aerated. There are, however, patchy areas of pulmonary air trapping with a mosaic pattern of alternating hypo- and hyperattenuating lung parenchyma in both lower lungs. Pulmonary air trapping can be idiopathic, seen in normal asymptomatic individuals - or can be associated with abnormal retention of air in the lungs where it is difficult to exhale completely - as is seen in obstructive lung diseases such as acute bronchiolitis/acute reactive airways disease/acute asthma or chronic diseases such as COPD (emphysema and chronic bronchitis), chronic asthma, chronic pulmonary embolism, hypersensitivity pneumonitis/drug reaction, eosinophilic pneumonia and bronchiolitis obliterans. Mild interstitial pulmonary edema versus viral or atypical pneumonia/pneumonitis are in the differential diagnosis and are additional mimics of pulmonary air trapping. Electronically signed by: Tony Jarvis On 11/07/2020 19:13:16 PM
--- NOTE | 2020-11-07 21:29 | ECGEPIP ---
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
[2020-11-07 22:29] LABS: CK-MB VALUE MASS < 1.0 NG/ML (<3.6); CPK CREATINE PHOSPHOKINASE 77 U/L (39-308); TROPONIN I < 0.02 NG/ML (< 0.10)
[2020-11-07 22:45] VITALS: BP 108/66
--- NOTE | 2020-11-08 05:19 | ECGEPIP ---
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
--- NOTE | 2020-11-08 05:49 | ED PDOC ---
Post-Departure Follow-Up radiology repo rtfaxed ot Wanda Magaña MD Nov 08, 2020 05:49
== END 2020-11-07 22:54 | disposition home or self-care (01) ==
LOC: M ED 15:45
DX: R00.2 Palpitations (principal); R07.9 Chest pain, unspecified; M54.30 Sciatica, unspecified side; J45.909 Unspecified asthma, uncomplicated; F41.9 Anxiety disorder, unspecified; Z79.899 Other long term (current) drug therapy; Z88.8 Allergy status to other drugs, medicaments and biological substances
CPT/HCPCS: 71045; 71275; 80048; 80076; 82550; 82553; 83690; 84439; 84443; 85025; 85610; 85730; 93005; 93041; 94760; 99285; Q9967

== ENCOUNTER → 2020-11-10 | Outpatient (REF) | payer OTHER ==
[2020-11-10 10:41] LABS: ALBUMIN 4.2 GM/DL (3.2-5.2); ALT/SGPT 40 U/L (12-78); BILIRUBIN,TOTAL 0.4 MG/DL (0.2-1.0); BLOOD UREA NITROGEN 25 MG/DL (7-18); CALCIUM LEVEL 9.3 MG/DL (8.5-10.1); CARBON DIOXIDE LEVEL 30 MEQ/L (21-32); CHLORIDE LEVEL 103 MEQ/L (98-107); CHOLESTEROL LEVEL 199 MG/DL (<200); CHOLESTEROL RISK RATIO 5.852 (<5); CREATININE FOR GFR 0.86 MG/DL (0.70-1.30); GLOMERULAR FILTRATION RATE > 60.0 (>60); GLUCOSE, FASTING 97 MG/DL (70-100); HDL CHOLESTEROL 34 MG/DL (>40); LDL CHOLESTEROL 102 MG/DL (<100); NON-HDL-C 165 MG/DL; POTASSIUM SERUM 4.2 MEQ/L (3.5-5.1); SODIUM LEVEL 138 MEQ/L (136-145); TOTAL PROTEIN 7.3 GM/DL (6.4-8.2); TRIGLYCERIDES LEVEL 316 MG/DL (<150)
== END ==
LOC: M SFHCPLAZ 08:58
PROVIDERS: ATTEND Internal Medicine
DX: E78.2 Mixed hyperlipidemia (principal)

== ENCOUNTER 2020-12-23 03:12 | Emergency (ER) | payer OTHER ==
[~2020-12-23] VITALS: Ht 162.6 cm; Wt 91.2 kg
[2020-12-23 03:14] VITALS: BP 142/89
[2020-12-23] MEDS ORDERED: ACYCLOVIR 1,000 MG in D5W 250 ML IV ONE (04:15)
[2020-12-23] MEDS ORDERED: dexameTHASONE 20MG/5ML VIAL (J1100 PER 1MG) IV ONE (04:15)
[2020-12-23] MEDS ORDERED: ACYC800T PO (05:18)
== END 2020-12-23 06:12 | disposition home or self-care (01) ==
LOC: M ED 03:12
DX: B00.1 Herpesviral vesicular dermatitis (principal); J45.909 Unspecified asthma, uncomplicated; Z79.899 Other long term (current) drug therapy; Z88.8 Allergy status to other drugs, medicaments and biological substances
CPT/HCPCS: 96365; 96375; 99283; J0133; J1100

== ENCOUNTER 2021-04-03 22:21 | Observation (INO) | payer OTHER ==
[~2021-04-03] VITALS: Ht 160 cm; Wt 90.2 kg
[~2021-04-03 22:21] MED LIST changes: +ACYC1TAB4 PO
[2021-04-03] MEDS ORDERED: CEPH500T PO (22:28)
[2021-04-04 00:11] LABS: INR 0.94; PARTIAL THROMBOPLASTIN TIME 25.9 SECONDS (24.2-38.5); PROTHROMBIN TIME 12.8 SECONDS (12.5-14.3)
[2021-04-04 00:13] LABS: BASO # 0.1 10^3/uL (0.0-0.2); BASO % 0.7 % (0.0-1.0); EOS # 0.2 10^3/uL (0.0-0.5); EOS % 2.2 % (0.0-3.0); HEMATOCRIT 44.2 % (42.0-52.0); LYMPH # 3.1 10^3/uL (1.5-5.0); LYMPH % 45.7 % (24.0-44.0); MEAN CORPUSCULAR HEMOGLOBIN 28.4 pg (27.0-33.0); MEAN CORPUSCULAR HGB CONC 33.9 g/dl (32.0-36.5); MEAN CORPUSCULAR VOLUME 83.7 fl (80.0-96.0); MONO # 0.7 10^3/uL (0.0-0.8); MONO % 10.5 % (2.0-8.0); NEUTROPHILS # 2.7 10^3/uL (1.5-8.5); NEUTROPHILS % 39.9 % (36.0-66.0); PLATELET COUNT, AUTOMATED 219 10^3/uL (150-450); RED BLOOD COUNT 5.28 10^6/uL (4.30-6.10); WHITE BLOOD COUNT 6.8 10^3/uL (4.0-10.0)
[2021-04-04 00:26] LABS: ALBUMIN 4.3 GM/DL (3.2-5.2); ALT/SGPT 44 U/L (12-78); BILIRUBIN,DIRECT < 0.1 MG/DL (0.0-0.2); BILIRUBIN,TOTAL 0.5 MG/DL (0.2-1.0); BLOOD UREA NITROGEN 15 MG/DL (7-18); CALCIUM LEVEL 8.8 MG/DL (8.5-10.1); CARBON DIOXIDE LEVEL 30 MEQ/L (21-32); CHLORIDE LEVEL 102 MEQ/L (98-107); CREATININE FOR GFR 0.91 MG/DL (0.70-1.30); GLOMERULAR FILTRATION RATE > 60.0 (>60); GLUCOSE, FASTING 88 MG/DL (70-100); LIPASE 268 U/L (73-393); POTASSIUM SERUM 3.9 MEQ/L (3.5-5.1); SODIUM LEVEL 137 MEQ/L (136-145); TOTAL PROTEIN 7.5 GM/DL (6.4-8.2)
[2021-04-04] MEDS ORDERED: ISOVUE-370 76% 100ML VIAL As Ordered ONE (00:28)
--- NOTE | 2021-04-04 01:51 | REPVR ---
PROCEDURE INFORMATION: Exam: CT Abdomen And Pelvis With Contrast Exam date and time: 04/04/2021 12:41 AM Age: 40 years old Clinical indication: Other: Gi bleed; Additional info: Gi bleeding TECHNIQUE: Imaging protocol: Computed tomography of the abdomen and pelvis with contrast. Radiation optimization: All CT scans at this facility use at least one of these dose optimization techniques: automated exposure control; mA and/or kV adjustment per patient size (includes targeted exams where dose is matched to clinical indication); or iterative reconstruction. Contrast material: ISOVUE 370; Contrast volume: 100 ml; Contrast route: INTRAVENOUS (IV); COMPARISON: CR Pelvis Ap ONLY 02/23/2020 3:37 AM FINDINGS: Lungs: No suspicious mass or airspace process in the visualized lung bases. Liver: Liver appears normal with no focal abnormality. Gallbladder and bile ducts: Gallbladder is present and shows no evidence of gallstone. Pancreas: Pancreas appears normal. No focal mass or peripancreatic inflammation. Spleen: Spleen appears homogeneous without focal mass. Adrenal glands: Adrenal glands are normal in appearance. Kidneys and ureters: Kidneys appear normal, with no stone, solid mass or hydronephrosis. Stomach and bowel: No evidence of small bowel obstruction. Terminal ileum has normal appearance. No evidence of acute diverticulitis. Appendix: Appendix is not seen. No RLQ inflammation to suggest appendicitis. Intraperitoneal space: No pneumoperitoneum. Vasculature: No aortic aneurysm. Main portal and splenic veins enhance normally. Lymph nodes: No enlarged lymph nodes. Urinary bladder: Urinary bladder appears normal. Reproductive: No overt enlargement of the prostate gland. Bones/joints: Bony structures show no acute fracture or destructive process. Soft tissues: No effacement of normal fat planes in the ischiorectal fossa. No concerning focal abnormality of the extra-abdominal and pelvic soft tissues. IMPRESSION: No acute abdominal or pelvic process. No explanation for gastrointestinal hemorrhage Electronically signed by: Poncho Aviles On 04/04/2021 01:51:00 AM
[2021-04-04] MEDS ORDERED: ACYC1TAB4 PO (02:49)
[2021-04-04] MEDS ORDERED: CEPH500C PO (02:49)
[2021-04-04] MEDS ORDERED: MAALOX 30 ML SUSP *UDC PO PRN (03:00)
[2021-04-04] MEDS ORDERED: ACETAMINOPHEN TAB 650MG DOSE (2X325MG) PO PRN (03:00)
[2021-04-04] MEDS ORDERED: MOM 30ML SUSPENSION UDC PO PRN (03:00)
--- NOTE | 2021-04-04 03:01 | HPEPDOC ---
[facility] Medical History & Physical Date of Admission Apr 04, 2021 Date of Service: Apr 04, 2021 Primary Care Physician: Seth Smith Attending Physician: DARIANA GILBERT MD History and Physical TIME OF SERVICE: 5 AM CHIEF COMPLAINT: Bright red blood per rectum HISTORY OF PRESENT ILLNESS: Mr. Bentley is a 40-year-old male, presented with complaints of bright red blood per rectum for about 2 days. He reports having diarrhea that is liquid in nature. He denied having abdominal pain fever chills nausea vomiting diarrhea dizziness headaches or chest pain. He is on antibiotics for shingles and thinks that that diarrhea may be related to this. He has a history of lower GI bleed which was attributed to hemorrhoids ; Dr. Salazar discussed the patient's case with Dr. Chin, who performed the previous colonoscopy, and he recommended admission for observation. 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 HOME MEDICATIONS: Please see below. PHYSICAL EXAMINATION: Vital Signs Date Time Temp Pulse Resp B/P (MAP) Pulse Ox O2 Delivery O2 Flow Rate FiO2 04/03/21 22:22 97.9 72 18 160/102 (121) 100 Room Air GEN: well nourished / well developed/ NAD INTEGUMENT: Right ear is slightly red HEENT: lips acyanotic /mucus membranes moist and pink / sclera anicteric CVS: RRR/NMRG/ radial pulses intact / no lower extremity edema LUNGS: lungs are clear to auscultation bilaterally on room air ABDOMEN: soft & not tender with palpation MSK/EXTREMITIES: range of motion intact in all 4 extremities NEURO: CN 2-12 are grossly intact / speech is not dysarthric PSYCH: alert and oriented to person place and time/ able to understand and follow all commands LABORATORY DATA: Immature Granulocyte % (Auto) 1.0, Neutrophils (%) (Auto) 39.9, Lymphocytes (%) (Auto) 45.7H, Monocytes (%) (Auto) 10.5H, Eosinophils (%) (Auto) 2.2, Basophils (%) (Auto) 0.7, Neutrophils # (Auto) 2.7, Lymphocytes # (Auto) 3.1, Monocytes # (Auto) 0.7, Eosinophils # (Auto) 0.2, Basophils # (Auto) 0.1, Nucleated Red Blood Cells % (auto) 0.0, Prothrombin Time 12.8, Prothromb Time International Ratio 0.94, Activated Partial Thromboplast Time 25.9, Urine Color YELLOW, Urine Appearance CLEAR, Urine pH 5.0, Urine Specific [place] 1.015, Urine Protein NEGATIVE, Urine Glucose (UA) NEGATIVE, Urine Ketones NEGATIVE, Urine Blood NEGA TIVE, Urine Nitrite NEGATIVE, Urine Bilirubin NEGATIVE, Urine Urobilinogen 0.2, Urine Leukocyte Esterase NEGATIVE, Urine WBC (Auto) 0, Urine RBC (Auto) 0, Urine Hyaline Casts (Auto) 0, Urine Bacteria (Auto) NEGATIVE, Urine Squamous Epithelial Cells 0, Urine Sperm (Auto) , Anion Gap 5L, Glomerular Filtration Rate > 60.0, Calcium Level 8.8, Total Bilirubin 0.5, Direct Bilirubin < 0.1, Aspartate Amino Transf (AST/SGOT) 22, Alanine Aminotransferase (ALT/SGPT) 44, Alkaline Phosphatase 57, Total Protein 7.5, Albumin 4.3, Albumin/Globulin Ratio 1.3, Lipase 268 IMAGING: CT abdomen pelvis IMPRESSION: No acute abdominal or pelvic process. No explanation for gastrointestinal hemorrhage MICROBIOLOGY: Respiratory panel is pending ASSESSMENT: Mr. Bentley is a 40-year-old with history of hemorrhoids and shingles affecting the right ear who is admitted for evaluation of bright red blood per rectum and diarrhea. PLAN: 1. Bright red blood per rectum Likely due to hemorrhoids Plan: Admit to medical floor/trend hemoglobin prior to deciding if he needs an official GI consult for endoscopy 2 Diarrhea Possibly due to gastroenteritis or antibiotic associated diarrhea Plan: Follow-up C. 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 Plan: Continue acyclovir and cephalexin 4 Class II obesity Complicates care DVT PROPHYLAXIS: Teds and sequentials DISPOSITION: home after less than 2 midnight's stay Home Medications Scheduled Acyclovir (Acyclovir) 800 Mg Tablet, 800 MG PO 5XD STARTED 04/01/21 X 5 DAYS Cephalexin (Cephalexin) 500 Mg Capsule, 500 MG PO BID STARTED 04/01/21 X 10 DAYS Citalopram Hydrobromide (Celexa) 40 Mg Tab, 40 MG PO DAILY Famotidine (Famotidine) 40 Mg Tablet, 40 MG PO QHS Allergies Coded Allergies: theophylline (Verified Adverse Reaction, Mild, SHILO, 08/10/19) A-FIB/CHADSVASC A-FIB History Current/History of A-Fib/PAF?: No Current PO Anticoag Therapy: No DARIANA GILBERT MD Apr 04, 2021 03:01
[2021-04-04] MEDS: FAMOTIDINE 20 MG TAB PO SCH ×2 (04:07→20:18)
[2021-04-04 06:00] VITALS: BP 143/91
[2021-04-04] MEDS: ACYCLOVIR 200 MG CAPSULE PO SCH ×5 (06:15→20:18)
[2021-04-04 06:40] VITALS: BP_SYST 134; BP_SYST 135; BP_SYST 142; BP_DIAS 89; BP_DIAS 90; BP_DIAS 91
[2021-04-04 06:59] LABS: HEMATOCRIT 41.8 % (42.0-52.0); HEMOGLOBIN 14.5 g/dl (13.5-17.5)
[2021-04-04] MEDS: CEPHALEXIN 500 MG CAP PO SCH ×2 (09:21→20:18)
[2021-04-04] MEDS: CitaloPRAM (CeleXA) 20 MG TAB PO SCH (09:21)
[2021-04-04 12:33] LABS: HEMATOCRIT 44.3 % (42.0-52.0); HEMOGLOBIN 14.9 g/dl (13.5-17.5)
[2021-04-04 14:00] VITALS: BP 123/79
[2021-04-04 22:00] VITALS: BP 123/79
[2021-04-04 23:37] LABS: CLOSTRIDIUM DIFFICILE PCR NEGATIVE (NEGATIVE)
[2021-04-05] MEDS: ACYCLOVIR 200 MG CAPSULE PO SCH ×2 (05:44→08:06)
[2021-04-05 06:00] VITALS: BP 119/74
[2021-04-05] MEDS: CEPHALEXIN 500 MG CAP PO SCH (08:06)
[2021-04-05] MEDS: CitaloPRAM (CeleXA) 20 MG TAB PO SCH (08:07)
[2021-04-05 08:43] LABS: BASO # 0.1 10^3/uL (0.0-0.2); BASO % 0.9 % (0.0-1.0); EOS # 0.2 10^3/uL (0.0-0.5); EOS % 3.2 % (0.0-3.0); HEMATOCRIT 42.8 % (42.0-52.0); HEMOGLOBIN 14.6 g/dl (13.5-17.5); LYMPH # 2.2 10^3/uL (1.5-5.0); LYMPH % 41.6 % (24.0-44.0); MEAN CORPUSCULAR HEMOGLOBIN 28.5 pg (27.0-33.0); MEAN CORPUSCULAR HGB CONC 34.1 g/dl (32.0-36.5); MEAN CORPUSCULAR VOLUME 83.6 fl (80.0-96.0); MONO # 0.6 10^3/uL (0.0-0.8); MONO % 10.4 % (2.0-8.0); NEUTROPHILS # 2.3 10^3/uL (1.5-8.5); NEUTROPHILS % 43.7 % (36.0-66.0); PLATELET COUNT, AUTOMATED 177 10^3/uL (150-450); RED BLOOD COUNT 5.12 10^6/uL (4.30-6.10); WHITE BLOOD COUNT 5.4 10^3/uL (4.0-10.0)
[2021-04-05 09:12] LABS: ALBUMIN 3.7 GM/DL (3.2-5.2); ALT/SGPT 45 U/L (12-78); BILIRUBIN,TOTAL 0.4 MG/DL (0.2-1.0); BLOOD UREA NITROGEN 14 MG/DL (7-18); CALCIUM LEVEL 8.9 MG/DL (8.5-10.1); CARBON DIOXIDE LEVEL 29 MEQ/L (21-32); CHLORIDE LEVEL 105 MEQ/L (98-107); CREATININE FOR GFR 0.84 MG/DL (0.70-1.30); GLOMERULAR FILTRATION RATE > 60.0 (>60); GLUCOSE, FASTING 98 MG/DL (70-100); MAGNESIUM LEVEL 2.4 MG/DL (1.8-2.4); SODIUM LEVEL 141 MEQ/L (136-145); TOTAL PROTEIN 6.7 GM/DL (6.4-8.2)
--- NOTE | 2021-04-05 11:01 | DS.PDOC ---
Discharge Summary General Date of Admission Apr 03, 2021 at 22:22 Date of Discharge 04/05/21 Discharge Summary PROCEDURES PERFORMED DURING STAY: [None]. COMPLICATIONS/CHIEF COMPLAINT: Lower Gi Bleed. HISTORY OF PRESENT ILLNESS: Mr. Bentley is a 40-year-old male, presented with complaints of bright red blood per rectum for about 2 days. He reports having diarrhea that is liquid in nature. He denied having abdominal pain fever chills nausea vomiting diarrhea dizziness headaches or chest pain. He is on antibiotics for shingles and thinks that that diarrhea may be related to this. He has a history of lower GI bleed which was attributed to hemorrhoids ; Dr. Salazar discussed the patient's case with Dr. Chin, who performed the previous colonoscopy, and he recommended admission for observation. HOSPITAL COURSE: 1. Bright red blood per rectum - Likely due to hemorrhoids - Hgb remains stable (>14) throughout admission, no further episodes of bleeding. - d/w Dr. Chin, belies patient is appropriate for DC and outpatient follow up for possible colonoscopy, treatment of hemorrhoids. 2 Diarrhea - negative stool for C diff 3.Shingles affecting the right ear - patient states frequent outbreaks during stressful periods - Continue acyclovir and cephalexin 4.Class II obesity Complicates care DISCHARGE MEDICATIONS: Please see below. ALLERGIES: Please see below. PHYSICAL EXAMINATION ON DISCHARGE: VITAL SIGNS: Please see below. GENERAL: healthy appearing male, NAD HEENT: PERRLA, EOMI NECK: supple, normal ROM CARDIOVASCULAR EXAMINATION: RRR, normal S1, S2 RESPIRATORY EXAMINATION: CTAB, no wheeze, no rales ABDOMINAL EXAMINATION: soft, non tender, non distended. EXTREMITIES: no edema, no joint deformity, no cyanosis SKIN: warm, dry NEUROLOGICAL EXAMINATION: no focal neuro abnormalities, CN2-12 intact, clear speech LABORATORY DATA: Please see below. IMAGING: CT abdo pelvis w IV contrast FINDINGS: Lungs: No suspicious mass or airspace process in the visualized lung bases. Liver: Liver appears normal with no focal abnormality. Gallbladder and bile ducts: Gallbladder is present and shows no evidence of gallstone. Pancreas: Pancreas appears normal. No focal mass or peripancreatic inflammation. Spleen: Spleen appears homogeneous without focal mass. Adrenal glands: Adrenal glands are normal in appearance. Kidneys and ureters: Kidneys appear normal, with no stone, solid mass or hydronephrosis. Stomach and bowel: No evidence of small bowel obstruction. Terminal ileum has normal appearance. No evidence of acute diverticulitis. Appendix: Appendix is not seen. No RLQ inflammation to suggest appendicitis. Intraperitoneal space: No pneumoperitoneum. Vasculature: No aortic aneurysm. Main portal and splenic veins enhance normally. Lymph nodes: No enlarged lymph nodes. Urinary bladder: Urinary bladder appears normal. Reproductive: No overt enlargement of the prostate gland. Bones/joints: Bony structures show no acute fracture or destructive process. Soft tissues: No effacement of normal fat planes in the ischiorectal fossa. No concerning focal abnormality of the extra-abdominal and pelvic soft tissues. IMPRESSION: No acute abdominal or pelvic process. No explanation for gastrointestinal hemorrhage PROGNOSIS: good ACTIVITY: [As tolerated]. DIET: as tolerated DISCHARGE PLAN: DC home. F/u with PCP 3-5 days. F/u Dr. Chin in 2-3 weeks. Bowel regimen for constipation. DISPOSITION: home DISCHARGE INSTRUCTIONS: 1. F/u PCP 3-5 days. 2. F/u General Surgery Dr. Chin 2-3 weeks. 3. Please take medication as prescribed. 4. If you develop worsening bleeding, abdominal pain, chest pain, shortness of breath, or otherwise worsening of your symptoms, please call 911 or return to nearest ER> DISCHARGE CONDITION: [Stable]. TIME SPENT ON DISCHARGE: 35 minutes Vital Signs/I&Os Vital Signs Date Time Temp Pulse Resp B/P (MAP) Pulse Ox O2 Delivery O2 Flow Rate FiO2 04/05/21 06:00 97.5 69 18 119/74 (89) 98 Room Air I&O- Last 24 Hours up to 6 AM 04/05/21 06:00 Intake Total 1080 ml Balance 1080 ml Laboratory Data Labs 24H Laboratory Tests 2 04/04/21 22:40: Clostridium difficile [id number] PRESUMPTIVE NEGATIVE, Clostridium difficile Toxin (PCR) NEGATIVE 04/05/21 08:31: Immature Granulocyte % (Auto) 0.2, Neutrophils (%) (Auto) 43.7, Lymphocytes (%) (Auto) 41.6, Monocytes (%) (Auto) 10.4H, Eosinophils (%) (Auto) 3.2H, Basophils (%) (Auto) 0.9, Neutrophils # (Auto) 2.3, Lymphocytes # (Auto) 2.2, Monocytes # (Auto) 0.6, Eosinophils # (Auto) 0.2, Basophils # (Auto) 0.1, Nucleated Red Blood Cells % (auto) 0.0, Anion Gap 7L, Glomerular Filtration Rate > 60.0, Calcium Level 8.9, Magnesium Level 2.4, Total Bilirubin 0.4, Aspartate Amino Transf (AST/SGOT) 19, Alanine Aminotransferase (ALT/SGPT) 45, Alkaline Phosphatase 55, Total Protein 6.7, Albumin 3.7, Albumin/Globulin Ratio 1.2 CBC/BMP Laboratory Tests 04/04/21 12:11 04/05/21 08:31 Microbiology Microbiology 04/04/21 Respiratory Virus Panel (PCR) (ALLEN) - Final, Complete Discharge Medications Scheduled Acyclovir (Acyclovir) 800 Mg Tablet, 800 MG PO 5XD, (Reported) STARTED 04/01/21 X 5 DAYS Cephalexin (Cephalexin) 500 Mg Capsule, 500 MG PO BID, (Reported) STARTED 04/01/21 X 10 DAYS Citalopram Hydrobromide (Celexa) 40 Mg Tab, 40 MG PO DAILY, (Reported) Famotidine (Famotidine) 40 Mg Tablet, 40 MG PO QHS, (Reported) Scheduled PRN Polyethylene Glycol 3350 (Miralax) 119 Gm Powder, 17 GRAM PO DAILY PRN for CONSTIPATION dissolve in water Allergies Coded Allergies: theophylline (Verified Adverse Reaction, Mild, SHILO, 08/10/19) EB CORNELIUS MD Apr 05, 2021 11:00
[2021-04-05] MEDS ORDERED: MIRA3350 PO (11:11)
== END 2021-04-05 11:45 | disposition home or self-care (01) ==
LOC: M ED 22:21 → M ED INP 22:22 → M MSPAV 04-04 05:18
PROVIDERS: ADMIT Internal Medicine; ATTEND Family Medicine
DX: K62.5 Hemorrhage of anus and rectum (principal); K64.9 Unspecified hemorrhoids; R19.7 Diarrhea, unspecified; B02.9 Zoster without complications; E66.9 Obesity, unspecified; K21.9 Gastro-esophageal reflux disease without esophagitis; Z98.1 Arthrodesis status; G47.33 Obstructive sleep apnea (adult) (pediatric); F41.9 Anxiety disorder, unspecified; E78.5 Hyperlipidemia, unspecified; Z79.899 Other long term (current) drug therapy; Z79.2 Long term (current) use of antibiotics; Z88.8 Allergy status to other drugs, medicaments and biological substances
CPT/HCPCS: 36415; 74177; 80048; 80053; 80076; 81001; 83690; 83735; 85014; 85018; 85025; 85610; 85730; 86850; 86900; 86901; 87493; 87798; 93041; 99285; Q9967

== ENCOUNTER → 2021-05-02 | Outpatient (CLI) | payer OTHER ==
[~2021-05-02] MED LIST changes: +CEPH500C PO; +CEPH500T PO; +MIRA3350 PO
== END ==
LOC: M LABSMTC 10:54
PROVIDERS: ATTEND Anesthesiology
DX: Z01.812 Encounter for preprocedural laboratory examination (principal); Z20.822 Contact with and (suspected) exposure to COVID-19

== ENCOUNTER 2021-05-07 06:36 | Day surgery (SDC) | payer OTHER ==
[~2021-05-07] VITALS: Ht 165.1 cm; Wt 90.3 kg
[~2021-05-07 06:36] MED LIST changes: +FISH1000 PO; +NS 1,000 ML IV ONE; +VITMTA PO
[2021-05-07] MEDS ORDERED: propofoL 200 MG/20 ML VIAL As Ordered ONE (06:56)
[2021-05-07] MEDS ORDERED: LIDOCAINE 2% 100MG/5ML SDV (FOR ANES.) As Ordered ONE (06:56)
--- NOTE | 2021-05-07 07:58 | ROOR ---
Patient Name: Hany Bentley Procedure Date: 05/07/2021 7:33 AM Date of : 1980 Age: 40 Room: OP02 Gender: Male Note Status: Finalized Procedure: Upper GI endoscopy Indications: Follow-up of esophageal reflux Providers: Nuno Chin MD Referring MD: Seth Smith MD Requesting Provider: Medicines: Monitored Anesthesia Care Complications: No immediate complications. Procedure: Pre-Anesthesia Assessment: - Prior to the procedure, a History and Physical was performed, and patient medications and allergies were reviewed. The patient is competent. The risks and benefits of the procedure and the sedation options and risks were discussed with the patient. All questions were answered and informed consent was obtained. Patient identification and proposed procedure were verified by the physician, the nurse and the anesthesiologist in the procedure room. Mental Status Examination: alert and oriented. Airway Examination: normal oropharyngeal airway and neck mobility. Prophylactic Antibiotics: The patient does not require prophylactic antibiotics. Prior Anticoagulants: The patient has taken no previous anticoagulant or antiplatelet agents. ASA Grade Assessment: III - A patient with severe systemic disease. After reviewing the risks and benefits, the patient was deemed in satisfactory condition to undergo the procedure. The anesthesia plan was to use monitored anesthesia care (MAC). Immediately prior to administration of medications, the patient was re-assessed for adequacy to receive sedatives. The heart rate, respiratory rate, oxygen saturations, blood pressure, adequacy of pulmonary ventilation, and response to care were monitored throughout the procedure. The physical status of the patient was re-assessed after the procedure. The Endoscope was introduced through the mouth, and advanced to the second part of duodenum. The upper GI endoscopy was accomplished without difficulty. The patient tolerated the procedure well. Findings: The examined esophagus was normal. The Z-line was regular. A few small sessile polyps were found on the greater curvature of the stomach. The first portion of the duodenum, second portion of the duodenum and major papilla were normal. Impression: - Normal esophagus. - Z-line regular. - A few gastric polyps. - Normal first portion of the duodenum, second portion of the duodenum and major papilla. - No specimens collected. Recommendation: - Discharge patient to home. - Resume previous diet. - Continue present medications. - Return to endoscopist as previously scheduled. Procedure Code(s): --- Professional --- 43509, Esophagogastroduodenoscopy, flexible, transoral; diagnostic, including collection of specimen(s) by brushing or washing, when performed (separate procedure) Diagnosis Code(s): --- Professional --- K31.7, Polyp of stomach and duodenum K21.9, Gastro-esophageal reflux disease without esophagitis CPT copyright 2019 [employer]. All rights reserved. The codes documented in this report are preliminary and upon silverlight developer review may be revised to meet current compliance requirements. Nuno Chin MD Nuno Chin MD 05/07/2021 7:57:28 AM Electronically signed by Nuno Chin MD Number of Addenda: 0 Note Initiated On: 05/07/2021 7:33 AM Estimated Blood Loss: Estimated blood loss: none.
[2021-05-07 08:14] VITALS: BP 134/90
== END 2021-05-07 08:15 | disposition home or self-care (01) ==
LOC: M OPP 06:36
PROVIDERS: ATTEND Surgery
DX: K31.7 Polyp of stomach and duodenum (principal); K21.9 Gastro-esophageal reflux disease without esophagitis; R12 Heartburn; Z88.8 Allergy status to other drugs, medicaments and biological substances; Z87.891 Personal history of nicotine dependence

== ENCOUNTER → 2021-07-06 | Outpatient (CLI) | payer OTHER ==
[~2021-07-06] MED LIST changes: -NS 1,000 ML IV ONE
--- NOTE | 2021-07-07 17:19 | REPVR ---
PROCEDURE INFORMATION: Exam: MR Lumbar Spine Without Contrast Exam date and time: 07/06/2021 11:56 AM Age: 41 years old Clinical indication: Pain; Lumbago; Additional info: Disc degeneration TECHNIQUE: Imaging protocol: Multiplanar magnetic resonance images of the lumbar spine without intravenous contrast. COMPARISON: MRI-Spine, L.S. without con 02/29/2020 7:17 AM FINDINGS: Vertebral body heights are maintained. No abnormal marrow signal. No cord compression. No abnormal cord signal. Conus medullaris terminates at the L1 level. Paravertebral soft tissues are unremarkable. L1-L2: No significant canal or foraminal narrowing. L2-L3: No significant canal or foraminal narrowing. L3-L4: Broad-based disc bulge causing mild bilateral foraminal narrowing. Along with small central disc protrusion there is mild canal narrowing. L4-L5: Broad-based disc bulge and facet hypertrophy cause mild canal narrowing and [id number] bilateral foraminal narrowing. L5-S1: No significant canal or foraminal narrowing. IMPRESSION: Multilevel spondylotic changes of the lumbar spine, as detailed above. Electronically signed by: Myles Ely On 07/07/2021 17:18:35 PM
== END ==
LOC: M PLAIMG 11:05
PROVIDERS: ATTEND Physician Assistant
DX: M51.26 Other intervertebral disc displacement, lumbar region (principal)

== ENCOUNTER → 2021-07-16 | Outpatient (CLI) | payer OTHER ==
--- NOTE | 2021-07-16 16:15 | REP ---
INDICATION: PAIN. COMPARISON: None. TECHNIQUE: Four views FINDINGS: The joint spaces are symmetric and well maintained. There is no fracture, dislocation, or subluxation. IMPRESSION: Negative. <Electronically signed by Lobo Alvarez > 07/16/21 [id number]
== END ==
LOC: M WUC 15:35
PROVIDERS: ATTEND Physician Assistant
DX: M79.671 Pain in right foot (principal)

== ENCOUNTER → 2021-11-11 | Outpatient (REF) | payer OTHER | LOC: M SFHCPLAZ 12:13 | PROVIDERS: ATTEND Internal Medicine | DX: Z00.00 Encounter for general adult medical examination without abnormal findings (principal); F34.1 Dysthymic disorder; E78.2 Mixed hyperlipidemia; Z11.59 Encounter for screening for other viral diseases; R00.2 Palpitations; Z53.9 Procedure and treatment not carried out, unspecified reason ==

== ENCOUNTER → 2021-11-11 | Outpatient (CLI) | payer OTHER ==
[2021-11-11 15:39] LABS: BASO # 0.1 10^3/uL (0.0-0.2); BASO % 0.8 % (0.0-1.0); EOS # 0.1 10^3/uL (0.0-0.5); EOS % 1.8 % (0.0-3.0); HEMOGLOBIN 16.8 g/dl (13.5-17.5); LYMPH # 2.7 10^3/uL (1.5-5.0); LYMPH % 35.7 % (24.0-44.0); MEAN CORPUSCULAR HEMOGLOBIN 29.2 pg (27.0-33.0); MEAN CORPUSCULAR HGB CONC 34.3 g/dl (32.0-36.5); MEAN CORPUSCULAR VOLUME 85.1 fl (80.0-96.0); MONO # 0.8 10^3/uL (0.0-0.8); MONO % 9.8 % (2.0-8.0); NEUTROPHILS # 3.9 10^3/uL (1.5-8.5); NEUTROPHILS % 51.4 % (36.0-66.0); PLATELET COUNT, AUTOMATED 223 10^3/uL (150-450); RED BLOOD COUNT 5.76 10^6/uL (4.30-6.10); WHITE BLOOD COUNT 7.6 10^3/uL (4.0-10.0)
[2021-11-11 16:04] LABS: ALBUMIN 4.3 GM/DL (3.2-5.2); ALT/SGPT 43 U/L (12-78); BILIRUBIN,TOTAL 0.5 MG/DL (0.2-1.0); BLOOD UREA NITROGEN 16 MG/DL (7-18); CARBON DIOXIDE LEVEL 27 MEQ/L (21-32); CHLORIDE LEVEL 103 MEQ/L (98-107); CHOLESTEROL LEVEL 281 MG/DL (<200); CHOLESTEROL RISK RATIO 7.025 (<5); CREATININE FOR GFR 0.87 MG/DL (0.70-1.30); GLOMERULAR FILTRATION RATE > 60.0 (>60); GLUCOSE, FASTING 90 MG/DL (70-100); HDL CHOLESTEROL 40 MG/DL (>40); MAGNESIUM LEVEL 2.1 MG/DL (1.8-2.4); NON-HDL-C 241 MG/DL; POTASSIUM SERUM 4.4 MEQ/L (3.5-5.1); SODIUM LEVEL 138 MEQ/L (136-145); TOTAL PROTEIN 7.7 GM/DL (6.4-8.2); TRIGLYCERIDES LEVEL 502 MG/DL (<150)
== END ==
LOC: M PLALAB 12:29
PROVIDERS: ATTEND Internal Medicine
DX: Z00.00 Encounter for general adult medical examination without abnormal findings (principal); F34.1 Dysthymic disorder; E78.2 Mixed hyperlipidemia; Z11.59 Encounter for screening for other viral diseases; R00.2 Palpitations

== ENCOUNTER → 2022-11-11 | Outpatient (CLI) | payer BC ==
[2022-11-11 11:42] LABS: C REACTIVE PROTEIN QUANTITATIV < 0.40 MG/DL (<1.0)
[2022-11-11 11:46] LABS: HEMATOCRIT 47.7 % (42.0-52.0); HEMOGLOBIN 15.9 g/dl (13.5-17.5); MEAN CORPUSCULAR HEMOGLOBIN 28.9 pg (27.0-33.0); MEAN CORPUSCULAR HGB CONC 33.3 g/dl (32.0-36.5); MEAN CORPUSCULAR VOLUME 86.6 fl (80.0-96.0); PLATELET COUNT, AUTOMATED 216 10^3/uL (150-450); RED BLOOD COUNT 5.51 10^6/uL (4.30-6.10); WHITE BLOOD COUNT 7.2 10^3/uL (4.0-10.0)
[2022-11-11 11:47] LABS: ALBUMIN 4.2 G/DL (3.2-5.2); ALKALINE PHOSPHATASE 69 U/L (46-116); ALT/SGPT 40 U/L (7.0-40); AST/SGOT 26 U/L (<34); BILIRUBIN,TOTAL 0.7 MG/DL (0.3-1.2); BLOOD UREA NITROGEN 19 MG/DL (9-23); CALCIUM LEVEL 9.2 MG/DL (8.5-10.1); CARBON DIOXIDE LEVEL 30 MMOL/L (20-31); CHLORIDE LEVEL 103 MMOL/L (98-107); CHOLESTEROL LEVEL 164 MG/DL (<200); CHOLESTEROL RISK RATIO 4.06 (<5); CREATININE FOR GFR 0.89 MG/DL (0.70-1.30); FREE T4 1.13 NG/DL (0.89-1.76); GLOMERULAR FILTRATION RATE > 60.0 (>60); GLUCOSE, FASTING 104 MG/DL (60-100); HDL CHOLESTEROL 40.3 MG/DL (>40); LDL CHOLESTEROL 68.5 MG/DL (<100); NON-HDL-C 124 MG/DL; POTASSIUM SERUM 4.1 MMOL/L (3.5-5.1); SODIUM LEVEL 139 MMOL/L (136-145); THYROID STIMULATING HORMONE 2.008 uIU/ML (0.55-4.78); TOTAL 25(OH) VITAMIN D 12.4 NG/ML (20.0-100.0); TOTAL PROTEIN 7.2 G/DL (5.7-8.2); TRIGLYCERIDES LEVEL 276 MG/DL (<150); VITAMIN B12 LEVEL 496 PG/ML (211-911)
[2022-11-11 13:04] LABS: HEMOGLOBIN A1c 5.3 % (4.0-6.0)
[2022-11-11 13:12] LABS: CREATININE, URINE 307.9 MG/DL; MAU/CREAT RATIO 6.4 MCG/MG (0.0-30.0)
== END ==
LOC: M PLALAB 08:44
PROVIDERS: ATTEND Internal Medicine Hematology
DX: E78.2 Mixed hyperlipidemia (principal)

== ENCOUNTER → 2023-07-05 | Outpatient (REF) | payer BC ==
[2023-07-05 11:21] LABS: APPEARANCE, URINE HAZY (CLEAR); BACTERIA, URINE AUTO NEGATIVE (NEGATIVE); BILIRUBIN, URINE AUTO NEGATIVE (NEGATIVE); BLOOD, URINE BLOOD NEGATIVE (NEGATIVE); CALCIUM OXALATE CRYSTALS SMALL; COLOR, URINE YELLOW (YELLOW); GLUCOSE, URINE (UA) AUTO NEGATIVE (NEGATIVE); KETONE, URINE AUTO NEGATIVE (NEGATIVE); LEUKOCYTE ESTERASE, URINE AUTO NEGATIVE (NEGATIVE); MUCUS, URINE SMALL (NEGATIVE); NITRITE, URINE AUTO NEGATIVE (NEGATIVE); PROTEIN, URINE AUTO NEGATIVE (NEGATIVE); RBC, URINE AUTO 0 /HPF (0-3); SPECIFIC GRAVITY URINE AUTO 1.024 (1.002-1.035); SQUAMOUS EPITHELIAL CELL UR AU 0 /HPF (0-6); UROBILINOGEN, URINE AUTO 0.2 mg/dL (0.0-2.0); WBC, URINE AUTO 1 /HPF (0-3)
== END ==
LOC: M SMT 09:49
PROVIDERS: ATTEND Internal Medicine Hematology
DX: N23 Unspecified renal colic (principal)

== ENCOUNTER → 2023-07-06 | Outpatient (CLI) | payer BC | LOC: M WHC 07:11 | PROVIDERS: ATTEND Internal Medicine Hematology | DX: N50.89 Other specified disorders of the male genital organs (principal); N50.3 Cyst of epididymis ==

== ENCOUNTER → 2023-07-19 | Outpatient (CLI) | payer BC | LOC: M WHC 07:09 | PROVIDERS: ATTEND Internal Medicine Hematology | DX: N23 Unspecified renal colic (principal) ==

== ENCOUNTER → 2024-05-24 | Outpatient (CLI) | payer BC ==
[2024-05-24 15:56] LABS: BASO # 0.1 10^3/uL (0.0-0.2); EOS # 0.1 10^3/uL (0.0-0.5); HEMATOCRIT 45.9 % (42.0-52.0); HEMOGLOBIN 15.7 g/dl (13.5-17.5); LYMPH % 33.5 % (24.0-44.0); MEAN CORPUSCULAR HEMOGLOBIN 29.5 pg (27.0-33.0); MEAN CORPUSCULAR HGB CONC 34.2 g/dl (32.0-36.5); MEAN CORPUSCULAR VOLUME 86.3 fl (80.0-96.0); MONO # 0.6 10^3/uL (0.0-0.8); NEUTROPHILS # 3.2 10^3/uL (1.5-8.5); NEUTROPHILS % 54.2 % (36.0-66.0); PLATELET COUNT, AUTOMATED 235 10^3/uL (150-450); RED BLOOD COUNT 5.32 10^6/uL (4.30-6.10); WHITE BLOOD COUNT 5.9 10^3/uL (4.0-10.0)
[2024-05-24 16:02] LABS: HEMOGLOBIN A1c 5.2 % (4.0-6.0)
[2024-05-24 16:08] LABS: CREATININE, URINE 177.2 MG/DL; MAU/CREAT RATIO 5.6 MCG/MG (0.0-30.0)
[2024-05-24 16:12] LABS: TOTAL 25(OH) VITAMIN D 35.6 NG/ML (20.0-100.0)
[2024-05-24 16:13] LABS: THYROID STIMULATING HORMONE 1.498 uIU/ML (0.55-4.78)
[2024-05-24 16:17] LABS: C REACTIVE PROTEIN QUANTITATIV < 0.40 MG/DL (<1.0)
[2024-05-24 16:19] LABS: ALBUMIN 4.4 G/DL (3.2-5.2); ALKALINE PHOSPHATASE 75 U/L (46-116); ALT/SGPT 33 U/L (7.0-40); AST/SGOT 12 U/L (<34); BILIRUBIN,TOTAL 0.7 MG/DL (0.3-1.2); BLOOD UREA NITROGEN 22 MG/DL (9-23); CALCIUM LEVEL 9.6 MG/DL (8.5-10.1); CARBON DIOXIDE LEVEL 28 MMOL/L (20-31); CHLORIDE LEVEL 106 MMOL/L (98-107); CREATININE FOR GFR 0.84 MG/DL (0.70-1.30); GLOMERULAR FILTRATION RATE > 60.0 (>60); GLUCOSE, FASTING 106 MG/DL (60-100); POTASSIUM SERUM 4.5 MMOL/L (3.5-5.1); SODIUM LEVEL 137 MMOL/L (136-145); TOTAL PROTEIN 7.3 G/DL (5.7-8.2)
[2024-05-24 16:21] LABS: VITAMIN B12 LEVEL 488 PG/ML (211-911)
== END ==
LOC: M PLALAB 12:31
PROVIDERS: ATTEND Internal Medicine Hematology
DX: E55.9 Vitamin D deficiency, unspecified (principal)

== ENCOUNTER → 2024-08-07 | Outpatient (CLI) | payer BC ==
[~2024-08-07] MED LIST changes: +ATOR1TAB21 PO; +ERGO500029 PO; +MELO15TA28 PO
[2024-08-07 14:00] LABS: HIV 1&2 SCREEN NEGATIVE (NEGATIVE)
[2024-08-10 14:28] LABS: HSV SOURCE Serum; HSV-1 DNA Not Detected (Not Detected); HSV-2 DNA Not Detected (Not Detected)
== END ==
LOC: M PLALAB 08:43
PROVIDERS: ATTEND Physician Assistant Medical
DX: N50.811 Right testicular pain (principal); Z11.3 Encounter for screening for infections with a predominantly sexual mode of transmission; N50.89 Other specified disorders of the male genital organs

== ENCOUNTER 2024-08-10 09:48 | Day surgery (SDC) | payer BC ==
[~2024-08-10] VITALS: Ht 165.1 cm; Wt 85.7 kg
[~2024-08-10 09:48] MED LIST changes: +LIDOCAINE 2% 100MG/5ML SDV (FOR ANES.) As Ordered ONE; +propofoL 200 MG/20 ML VIAL As Ordered ONE
[2024-08-10 10:46] VITALS: TEMP 97
[2024-08-10 11:05] VITALS: BP 115/76; O2SAT 98
== END 2024-08-10 11:12 | disposition home or self-care (01) ==
LOC: M OPP 09:48
PROVIDERS: ATTEND Surgery
DX: K31.7 Polyp of stomach and duodenum (principal); K30 Functional dyspepsia; K21.9 Gastro-esophageal reflux disease without esophagitis; Z90.49 Acquired absence of other specified parts of digestive tract; Z87.19 Personal history of other diseases of the digestive system; E78.00 Pure hypercholesterolemia, unspecified; G47.30 Sleep apnea, unspecified; G43.909 Migraine, unspecified, not intractable, without status migrainosus; Z79.899 Other long term (current) drug therapy; J45.909 Unspecified asthma, uncomplicated; Z79.1 Long term (current) use of non-steroidal anti-inflammatories (NSAID); Z88.8 Allergy status to other drugs, medicaments and biological substances

== ENCOUNTER → 2024-09-07 | Outpatient (CLI) | payer BC ==
[~2024-09-07] MED LIST changes: -LIDOCAINE 2% 100MG/5ML SDV (FOR ANES.) As Ordered ONE; -propofoL 200 MG/20 ML VIAL As Ordered ONE
== END ==
LOC: M PLARAD 12:26
PROVIDERS: ATTEND Orthopaedic Surgery
DX: M54.2 Cervicalgia (principal); M51.34 Other intervertebral disc degeneration, thoracic region